=== PATIENT | male | born 1955 | race Caucasian/White ===

== ENCOUNTER 2018-09-22 11:31 | Emergency (ER) | payer BC ==
--- NOTE | 2018-09-22 13:28 | ER ---
Nurse's Notes [facility] Name: Gucci Orozco Age: 63 yrs Sex: Male : 1955 Arrival Date: 09/22/2018 Time: 11:36 Bed 13 Private MD: Onesimo Rubin H Diagnosis: Tremor, unspecified Presentation: 09/22 11:41 Presenting complaint: Patient states: "My fingers, hands will start jerking on their sv own." Reports that he has had his medications changed around over the years and the twitching has gotten worse. Transition of care: patient was not received from another setting of care. Onset of symptoms is unknown. Care prior to arrival: None. 11:41 Method Of Arrival: Ambulatory sv 11:41 Acuity: ANALISA 4 sv 13:00 Risk Assessment: Do you want to hurt yourself or someone else? Patient reports no ph desire to harm self or others. Initial Sepsis Screen: Does the patient meet any 2 criteria? No. Patient's initial sepsis screen is negative. Does the patient have a suspected source of infection? No. Patient's initial sepsis screen is negative. Historical: - Allergies: 11:43 No Known Allergies; sv - PSHx: 11:43 Appendectomy; CABG; sv - Immunization history:: Adult Immunizations unknown. - Social history:: Patient/guardian denies using alcohol, street drugs, The patient lives with family, Smoking status: Patient/guardian denies using tobacco. - Family history:: not pertinent. - Ebola Screening: : No symptoms or risks identified at this time. Screenin:00 Abuse screen: Denies threats or abuse. Denies injuries from another. Nutritional ph screening: No deficits noted. Tuberculosis screening: No symptoms or risk factors identified. Fall Risk None identified. Assessment: 12:30 General: Appears in no apparent distress. comfortable, obese, well groomed, Behavior is ph calm, cooperative, appropriate for age, Denies fever, feeling ill. Pain: Denies pain. Neuro: Level of Consciousness is awake, alert, obeys commands, Oriented to person, place, time, situation, Lining Finisher are equal bilaterally Moves all extremities. Full function. Cardiovascular: Capillary refill < 3 seconds in bilateral fingers Patient's skin is warm and dry. Respiratory: Airway is patent Respiratory effort is even, unlabored. Derm: Skin is intact, is healthy with good turgor, Skin is pink, warm \\T\\ dry. Musculoskeletal: Circulation, motion, and sensation intact. Range of motion: intact in all extremities. 14:00 Reassessment: Patient appears in no apparent distress at this time. Patient and/or ph family updated on plan of care and expected duration. Pain level reassessed. Patient is alert, oriented x 3, equal unlabored respirations, skin warm/dry/pink. Vital Signs: 11:43 BP 99 / 68; Pulse 77; Resp 18; Temp 97; Pulse Ox 96% ; Weight 136.08 kg; Height 6 ft. 0 sv in. (182.88 cm); 11:43 Body Mass Index 40.69 (136.08 kg, 182.88 cm) sv ED Course: 11:36 Patient arrived in ED. dl4 11:36 Onesimo Rubin DO is Private Physician. dl4 11:42 Triage completed. sv 11:44 Arm band placed on. sv 11:48 Elena Saxena RN is Primary Nurse. ph 11:50 Tanika Deluca MD is Attending Physician. ma2 13:00 Patient has correct armband on for positive identification. Bed in low position. Call ph light in reach. Side rails up X 1. 13:00 No provider procedures requiring assistance completed. Patient did not have IV access ph during this emergency room visit. Administered Medications: No medications were administered Point of Care Testing: Blood Glucose: 12:59 Blood Glucose: 211 mg/dL; ph Ranges: Outcome: 13:27 Discharge ordered by . ma2 14:00 Patient left the ED. ph 14:00 Discharged to home ambulatory. ph 14:00 Condition: good 14:00 Discharge instructions given to patient, Instructed on discharge instructions, follow up and referral plans. Demonstrated understanding of instructions, follow-up care. Signatures: Harriet Vang RN RN Elena Saxena RN RN Tanika Deluca MD MD ma Siddhartha Orozco dl4 Corrections: (The following items were deleted from the chart) 11:47 11:43 Pulse 77bpm; Resp 18bpm; Pulse Ox 96%; Temp 97F; 136.08 kg; Height 6 ft. 0 in.; sv BMI: 40.6; sv
--- NOTE | 2018-09-22 13:28 | EDPHYS ---
Physician Documentation [facility] Name: Gucci Orozco Age: 63 yrs Sex: Male : 1955 Arrival Date: 09/22/2018 Time: 11:36 Bed 13 Private MD: Onesimo Rubin H ED Physician Tanika Deluca HPI: 09/22 12:10 This 63 yrs old Male presents to ER via Ambulatory with complaints of ma2 Twitching. 12:10 Onset: The symptoms/episode began/occurred gradually, 3 year(s) ago. Associated signs ma2 and symptoms: Pertinent negatives: Altered mental status chest pain, dysphagia, fever, Light headed nausea, rash, swelling, Syncope. Possible causes: The patient has no known obvious cause for the symptoms. At home the patient or guardian has treated the symptoms with nothing. Severity of symptoms: At their worst the symptoms were mild in the emergency department the symptoms are unchanged. The patient has not experienced similar symptoms in the past. here with intentional tremor that is been there for 3 years getting gradually worse over last 2 months, has no other symptoms. Historical: - Allergies: 11:43 No Known Allergies; sv - PSHx: 11:43 Appendectomy; CABG; sv - Immunization history:: Adult Immunizations unknown. - Social history:: Patient/guardian denies using alcohol, street drugs, The patient lives with family, Smoking status: Patient/guardian denies using tobacco. - Family history:: not pertinent. - Ebola Screening: : No symptoms or risks identified at this time. ROS: 12:10 Constitutional: Negative for fever, chills, and weight loss. ma2 12:10 Neuro: Positive for tremor, Negative for altered mental status, dizziness, gait disturbance, headache, hearing loss, loss of consciousness, numbness, seizure activity, speech changes, syncope, near syncope, tingling, tinnitus, visual changes, weakness, acute changes. 12:10 All other systems are negative. Exam: 12:10 Constitutional: This is a well developed, well nourished patient who is awake, alert, ma2 and in no acute distress. Chest/axilla: Normal chest wall appearance and motion. Nontender with no deformity. No lesions are appreciated. Cardiovascular: Regular rate and rhythm with a normal S1 and S2. No gallops, murmurs, or rubs. Normal PMI, no JVD. No pulse deficits. Respiratory: Lungs have equal breath sounds bilaterally, clear to auscultation and percussion. No rales, rhonchi or wheezes noted. No increased work of breathing, no retractions or nasal flaring. Abdomen/GI: Soft, non-tender, with normal bowel sounds. No distension or tympany. No guarding or rebound. No evidence of tenderness throughout. Skin: Warm, dry with normal turgor. Normal color with no rashes, no lesions, and no evidence of cellulitis. MS/ Extremity: Pulses equal, no cyanosis. Neurovascular intact. Full, normal range of motion. Neuro: Awake and alert, GCS 15, oriented to person, place, time, and situation. Cranial nerves II-XII grossly intact. Motor strength 5/5 in all extremities. Sensory grossly intact. Cerebellar exam normal. Normal gait. Vital Signs: 11:43 BP 99 / 68; Pulse 77; Resp 18; Temp 97; Pulse Ox 96% ; Weight 136.08 kg; Height 6 ft. 0 sv in. (182.88 cm); 11:43 Body Mass Index 40.69 (136.08 kg, 182.88 cm) sv MDM: 11:51 Patient medically screened. ma2 12:10 Differential diagnosis: Parkinson, vs essential tremor vs drug s/e, n oemergency ma2 condition exist and he will see his pco next week to address that. Data reviewed: vital signs, nurses notes, diagnostic data from outside facility. Counseling: I had a detailed discussion with the patient and/or guardian regarding: the historical points, exam findings, and any diagnostic results supporting the discharge/admit diagnosis, the presence of at least one elevated blood pressure reading (>120/80) during this emergency department visit, the need for outpatient follow up. Response to treatment:. 09/22 12:08 Order name: Accucheck Blood Glucose; Complete Time: 13:00 ma2 Administered Medications: No medications were administered Point of Care Testing: Blood Glucose: 12:59 Blood Glucose: 211 mg/dL; ph Ranges: Critical Glucose Levels:Adult <50 mg/dl or >400 mg/dl <40 mg/dl or >180 mg/dl Disposition: 09/22/18 13:27 Discharged to Home. Impression: Tremor, unspecified. - Condition is Stable. - Discharge Instructions: Tremor, Diabetic Neuropathy. - Medication Reconciliation Form, Thank You Letter, Antibiotic Education, Prescription Opioid Use form. - Follow up: Private Physician; When: Tomorrow; Reason: Continuance of care. Signatures: Harriet Vang RN RN Elena Saxena RN RN ph Tanika Deluca MD MD ma2 Corrections: (The following items were deleted from the chart) 14:00 13:27 09/22/2018 13:27 Discharged to Home. Impression: Tremor, unspecified. Condition ph is Stable. Forms are Medication Reconciliation Form, Thank You Letter, Antibiotic Education, Prescription Opioid Use. Follow up: Private Physician; When: Tomorrow; Reason: Continuance of care. ma2
[2018-09-22 14:04] VITALS: BP 99/68; TEMP 97; O2SAT 96
== END 2018-09-22 14:00 | disposition home or self-care (01) ==
LOC: ER 11:31
DX: R25.1 Tremor, unspecified (principal)
CPT/HCPCS: 82962

== ENCOUNTER 2019-02-18 08:27 | Observation (INO) | payer BC ==
--- NOTE | 2019-02-18 09:22 | RAD REPORT ---
EXAM DESCRIPTION: RAD - Chest Single View - 02/18/2019 9:10 am CLINICAL HISTORY: CHEST PAIN Chest pain. COMPARISON: CHEST SINGLE VIEW dated 06/11/2014; CHEST SINGLE VIEW dated 06/10/2014; CHEST SINGLE VIEW dated 04/19/2013; CHEST SINGLE VIEW dated 03/02/2013 FINDINGS: Portable technique limits examination quality. Mild interstitial pulmonary edema is seen. The heart is prominent in size with sternotomy wires prese nt. No displaced fractures. IMPRESSION: Mild CHF suspected.
[2019-02-18 10:10] LABS: Absolute Lymphocytes (CBC) 1.8 K/uL (0.7-4.9); Basophils % 0.6 % (0-1.3); Eosinophils % 2.7 % (0-4.4); Hematocrit 37.2 % (39.6-49.0); Lymphocytes % 35.6 % (15.3-44.8); RBC Red Blood Cell Count 3.95 M/uL (4.33-5.43)
[2019-02-18 10:17] LABS: Protime INR 1.74
[2019-02-18 10:21] LABS: ALT/SGPT 23 U/L (12-78); AST/SGOT 18 U/L (15-37); Albumin 3.6 g/dL (3.4-5.0); Alkaline Phosphatase 48 U/L (45-117); BUN Blood Urea Nitrogen 21 mg/dL (7-18); Bicarbonate 26 mmol/L (21-32); Bilirubin Direct 0.2 mg/dL (0-0.2); Bilirubin Total 0.6 mg/dL (0.2-1.0); Glucose Level 197 mg/dL (74-106); Magnesium 1.8 mg/dL (1.8-2.4); NT PRO-BNP 643 pg/mL (<125); Potassium 4.6 mmol/L (3.5-5.1); Protein, Total 6.9 g/dL (6.4-8.2); Sodium Level 140 mmol/L (136-145); Troponin (Emerg Dept Use Only) < 0.02 ng/mL (0.0-0.045)
--- NOTE | 2019-02-18 11:23 | ER ---
Nurse's Notes [facility] Name: Gucci Orozco Age: 63 yrs Sex: Male : 1955 Arrival Date: 02/18/2019 Time: 08:28 Bed 2 Private MD: Onesimo Rubin H Diagnosis: Atrial fibrillation and flutter;Weakness;Shortness of breath;Chest pain, unspecified;Acute combined systolic (congestive) and diastolic (congestive) heart failure Presentation: 02/18 08:30 Presenting complaint: Patient states: shortness of breath, intermittent heart racing ss sensation and chest discomfort that has been intermittent for the past few days, but became worse this morning. Pt reports he last took a Nitro SL at 0100 this AM. Transition of care: patient was not received from another setting of care. Onset of symptoms is unknown. Risk Assessment: Do you want to hurt yourself or someone else? Patient reports no desire to harm self or others. Initial Sepsis Screen: Does the patient meet any 2 criteria? No. Patient's initial sepsis screen is negative. Does the patient have a suspected source of infection? No. Patient's initial sepsis screen is negative. Care prior to arrival: None. 08:30 Method Of Arrival: Ambulatory ss 08:30 Acuity: ANALISA 2 ss Historical: - Allergies: 08:41 No Known Allergies; ss - PMHx: 08:41 Myocardial infarction; ss - PSHx: 08:41 Appendectomy; CABG; cardiac stents; ss - Immunization history:: Adult Immunizations up to date. - Social history:: Smoking status: Patient/guardian denies using tobacco. - Ebola Screening: : Patient denies exposure to infectious person Patient denies travel to an Ebola-affected area in the 21 days before illness onset. Screenin:40 Abuse screen: Denies threats or abuse. Denies injuries from another. Nutritional sg screening: No deficits noted. Tuberculosis screening: No symptoms or risk factors identified. Never had TB. Fall Risk None identified. Assessment: 09:49 Reassessment: Patient appears in no apparent distress at this time. Patient and/or sg family updated on plan of care and expected duration. Pain level reassessed. Patient is alert, oriented x 3, equal unlabored respirations, skin warm/dry/pink. 09:58 Reassessment: pt bedside monitor recorded HR in 40's, notified. sg Vital Signs: 08:41 BP 145 / 76; Pulse 59; Resp 16; Temp 97.2(TE); Pulse Ox 96% on R/A; Weight 147.42 kg; ss Height 6 ft. 0 in. (182.88 cm); Pain 0/10; 09:55 BP 129 / 72; Pulse 42; Resp 18; Pulse Ox 96% on R/A; sg 10:30 BP 132 / 95; Pulse 52; Resp 18; Pulse Ox 100% on R/A; sg 11:30 BP 141 / 86; Pulse 50; Resp 17; Pulse Ox 96% on R/A; sg 12:30 BP 150 / 86; Pulse 58 MON; Resp 17; Pulse Ox 95% on R/A; sg 13:40 BP 130 / 67; Pulse 60; Resp 17; Temp 97.2; Pulse Ox 96% on R/A; sg 08:41 Body Mass Index 44.08 (147.42 kg, 182.88 cm) ED Course: 08:28 Patient arrived in ED. as 08:29 Onesimo Rubin DO is Private Physician. as 08:33 Willem Mejia MD is Attending Physician. kdr 08:40 Triage completed. ss 08:41 Arm band placed on right wrist. ss 08:47 EKG done, by certified surgical tech/first assistant. reviewed by Willem Mejia MD. at1 09:03 X-ray completed. Portable x-ray completed in exam room. Patient tolerated procedure jb2 well. 09:08 XRAY Chest (1 view) In Process Unspecified. EDMS 09:10 Initial lab(s) drawn, by me, sent to lab. sg 09:40 Lab(s) recollected, by me, sent to lab. sg 09:49 Zen Dunlap, RN is Primary Nurse. sg 09:55 Patient has correct armband on for positive identification. Bed in low position. Call sg light in reach. Side rails up X2. classroom monitor on. Pulse ox on. NIBP on. Warm blanket given. Head of bed elevated. 11:22 Anna Harris MD is Hospitalizing Provider. kdr 15:00 No provider procedures requiring assistance completed. Patient admitted, IV remains in sg place. intact, No redness/swelling at site. Administered Medications: 12:05 Drug: Lasix 40 mg Route: IVP; Site: left hand; 13:00 Follow up: Response: No adverse reaction; void x1, see vitals output sheet Intake: Output: 15:06 Urine: 2000ml (Voided); Total: 2000ml. sg Outcome: 11:23 Decision to Hospitalize by Provider. kdr 15:07 Admitted to Tele accompanied by tech, via wheelchair, room 416, with chart, Report sg called to BIA Driscoll 15:07 Condition: stable 15:07 Instructed on the need for admit, safety practices. 15:32 Patient left the ED. sg Signatures: Dispatcher [employer] EDZen Mckeon RN RN Willem Gotti MD MD kdr Buechter, Jesse jb2 Martinez, Amelia as Smirch, Shelby, RN RN Belle Sultana, quality controller EKG Tat1
--- NOTE | 2019-02-18 11:24 | EDPHYS ---
Physician Documentation [facility] Name: Gucci Orozco Age: 63 yrs Sex: Male : 1955 Arrival Date: 02/18/2019 Time: 08:28 Bed 2 Private MD: Onesimo Rubin H ED Physician Willem Mejia HPI: 02/18 10:00 This 63 yrs old Male presents to ER via Ambulatory with complaints of Chest kdr Tightness. 10:00 The patient c/o general chest discomfort - not pain - similar to when he has had his kdr prior VT. He also feels like his heart is racing and he is SOB. Again, similar to prior MIs Started at about 10:00 PM last night and he states that eh was unable to sleep last night. He went to work this morning and his symptoms continued so he had one of his co-workers bring hi to the ED. On the way to the ED, his symptoms greatly improved and have now [id number] resolved. Historical: - Allergies: 08:41 No Known Allergies; ss - PMHx: 08:41 Myocardial infarction; ss - PSHx: 08:41 Appendectomy; CABG; cardiac stents; ss - Immunization history:: Adult Immunizations up to date. - Social history:: Smoking status: Patient/guardian denies using tobacco. - Ebola Screening: : Patient denies exposure to infectious person Patient denies travel to an Ebola-affected area in the 21 days before illness onset. ROS: 10:00 Constitutional: Negative for fever, chills, and weight loss, Eyes: Negative for injury, kdr pain, redness, and discharge, ENT: Negative for injury, pain, and discharge, Neck: Negative for injury, pain, and swelling, Abdomen/GI: Negative for abdominal pain, nausea, vomiting, diarrhea, and constipation, Back: Negative for injury and pain, : Negative for injury, bleeding, discharge, and swelling, MS/Extremity: Negative for injury and deformity, Skin: Negative for injury, rash, and discoloration, Neuro: Negative for headache, weakness, numbness, tingling, and seizure activity. Psych: Negative for depression, anxiety, suicide ideation, homicidal ideation, and hallucinations, Allergy/Immunology: Negative for hives, rash, and allergies, Endocrine: Negative for neck swelling, polydipsia, polyuria, polyphagia, and marked weight changes, Hematologic/Lymphatic: Negative for swollen nodes, abnormal bleeding, and unusual bruising. 10:00 Cardiovascular: Positive for chest pain, palpitations, paroxysmal nocturnal dyspnea, Negative for orthopnea. 10:00 Respiratory: Positive for dyspnea on exertion, shortness of breath, Negative for hemoptysis, orthopnea, pleurisy. Exam: 10:00 Constitutional: This is a well developed, well nourished patient who is awake, alert, kdr and in no acute distress. Head/Face: Normocephalic, atraumatic. Eyes: Pupils equal round and reactive to light, extra-ocular motions intact. Lids and lashes normal. Conjunctiva and sclera are non-icteric and not injected. Cornea within normal limits. Periorbital areas with no swelling, redness, or edema. Neck: Trachea midline, no thyromegaly or masses palpated, and no cervical lymphadenopathy. Supple, full range of motion without nuchal rigidity, or vertebral point tenderness. No Meningismus. Chest/axilla: Normal chest wall appearance and motion. Nontender with no deformity. No lesions are appreciated. Cardiovascular: Regular rate and rhythm with a normal S1 and S2. No gallops, murmurs, or rubs. Normal PMI, no JVD. No pulse deficits. Respiratory: Lungs have equal breath sounds bilaterally, clear to auscultation and percussion. No rales, rhonchi or wheezes noted. No increased work of breathing, no retractions or nasal flaring. Abdomen/GI: Soft, non-tender, with normal bowel sounds. No distension or tympany. No guarding or rebound. No evidence of tenderness throughout. Back: No spinal tenderness. No costovertebral tenderness. Full range of motion. Skin: Warm, dry with normal turgor. Normal color with no rashes, no lesions, and no evidence of cellulitis. MS/ Extremity: Pulses equal, no cyanosis. Neurovascular intact. Full, normal range of motion. Neuro: Awake and alert, GCS 15, oriented to person, place, time, and situation. Cranial nerves II-XII grossly intact. Motor strength 5/5 in all extremities. Sensory grossly intact. Cerebellar exam normal. Normal gait. Psych: Awake, alert, with orientation to person, place and time. Behavior, mood, and affect are within normal limits. Vital Signs: 08:41 BP 145 / 76; Pulse 59; Resp 16; Temp 97.2(TE); Pulse Ox 96% on R/A; Weight 147.42 kg; ss Height 6 ft. 0 in. (182.88 cm); Pain 0/10; 09:55 BP 129 / 72; Pulse 42; Resp 18; Pulse Ox 96% on R/A; sg 10:30 BP 132 / 95; Pulse 52; Resp 18; Pulse Ox 100% on R/A; sg 11:30 BP 141 / 86; Pulse 50; Resp 17; Pulse Ox 96% on R/A; sg 12:30 BP 150 / 86; Pulse 58 MON; Resp 17; Pulse Ox 95% on R/A; sg 13:40 BP 130 / 67; Pulse 60; Resp 17; Temp 97.2; Pulse Ox 96% on R/A; sg 08:41 Body Mass Index 44.08 (147.42 kg, 182.88 cm) ss MDM: 09:52 HEART Score: History: Moderately Suspicious (1), ECG: Non specific repolarization kdr disturbance / LBTB / PM (1), Age: > 45 and < 65 years (1), Risk Factors: 1 or 2 risk factors (1), [Obesity]. 11:23 Patient medically screened. kdr 11:23 Data reviewed: vital signs, nurses notes, lab test result(s), radiologic studies. kdr 02/18 08:33 Order name: Basic Metabolic Panel; Complete Time: 11:44 kdr 02/18 08:33 Order name: CBC with Diff kdr 02/18 08:33 Order name: LFT's; Complete Time: 11:44 kdr 02/18 08:33 Order name: Magnesium; Complete Time: 11:44 kdr 02/18 08:33 Order name: NT PRO-BNP; Complete Time: 11:44 kdr 02/18 08:33 Order name: PT-INR; Complete Time: 11:44 kdr 02/18 08:33 Order name: Troponin (emerg Dept Use Only); Complete Time: 11:44 kdr 02/18 08:33 Order name: XRAY Chest (1 view); Complete Time: 09:43 kdr 02/18 08:33 Order name: EKG; Complete Time: 08:38 kdr 02/18 11:52 Order name: Troponin I [facility] 02/18 11:52 Order name: Troponin I [facility] 02/18 11:52 Order name: Troponin I [facility] 02/18 11:52 Order name: Troponin I [facility] 02/18 08:33 Order name: Cardiac monitoring; Complete Time: 08:44 [facility] 02/18 08:33 Order name: EKG - Nurse/Tech; Complete Time: 08:44 [facility] 02/18 08:33 Order name: IV Saline Lock; Complete Time: 08:44 [facility] 02/18 08:33 Order name: Labs collected and sent; Complete Time: 08:44 [facility] 02/18 08:33 Order name: O2 Per Protocol; Complete Time: 08:44 [facility] 02/18 08:33 Order name: O2 Sat Monitoring; Complete Time: 08:44 [facility] 02/18 09:32 Order name: Labs - recollect needed; Complete Time: 09:58 tn 02/18 11:52 Order name: CONS Physician Consult [facility] 02/18 11:52 Order name: NPO EDNE Administered Medications: 12:05 Drug: Lasix 40 mg Route: IVP; Site: left hand; 13:00 Follow up: Response: No adverse reaction; void x1, see vitals output sheet sg Disposition: 02/18/19 11:23 Hospitalization ordered by Anna Harris for Observation. Preliminary diagnosis are Atrial fibrillation and flutter, Weakness, Shortness of breath, Chest pain, unspecified, Acute combined systolic (congestive) and diastolic (congestive) heart failure. - Bed requested for Telemetry/MedSurg (observation). - Status is Observation. sg - Condition is Fair. - Problem is new. - Symptoms have improved. UTI on Admission? No Signatures: Dispatcher [employer] [facility] Christen Forrester RN BIA Zen Dunlap RN RN sg Willem Mejia MD MD [facility] Kacy Patel ms Kim Jones RN RN ss Corrections: (The following items were deleted from the chart) 11:44 11:23 Hospitalization Ordered by Anna Harris MD for Observation. Preliminary kdr diagnosis is Atrial fibrillation and flutter; Weakness; Shortness of breath; Chest pain, unspecified. Bed requested for Telemetry/MedSurg (observation). Status is Observation. Condition is Fair. Problem is new. Symptoms have improved. UTI on Admission? No. kdr 14:51 11:44 02/18/2019 11:23 Hospitalization Ordered by Anna Harris MD for Observation. dw Preliminary diagnosis is Atrial fibrillation and flutter; Weakness; Shortness of breath; Chest pain, unspecified; Acute combined systolic (congestive) and diastolic (congestive) heart failure. Bed requested for Telemetry/MedSurg (observation). Status is Observation. Condition is Fair. Problem is new. Symptoms have improved. UTI on Admission? No. kdr 15:32 14:51 02/18/2019 11:23 Hospitalization Ordered by Anna Harris MD for Observation. sg Preliminary diagnosis is Atrial fibrillation and flutter; Weakness; Shortness of breath; Chest pain, unspecified; Acute combined systolic (congestive) and diastolic (congestive) heart failure. Bed requested for Telemetry/MedSurg (observation). Status is Observation. Condition is Fair. Problem is new. Symptoms have improved. UTI on Admission? No. dw
[2019-02-18] MEDS ORDERED: FUROSEMIDE 40 MG/4 ML VIAL ONE (12:07)
--- NOTE | 2019-02-18 12:38 | EKG ---
Test Date: 2019-02-18 Test Time: 08:43:04 Laboratory Machinist: COLEEN MEASUREMENT RESULTS: Intervals: Rate: 57 ND: QRSD: 104 QT: 418 QTc: 406 Tolley: P: -6 ND: QRS: 132 T: 90 INTERPRETIVE STATEMENTS: Atrial flutter with variable AV block Left posterior fascicular block Abnormal ECG Compared to ECG 06/12/2014 09:03:04 Left posterior fascicular block now present Sinus rhythm no longer present Left-axis deviation no longer present Myocardial infarct finding no longer present Electronically Signed On 02-18-19 12:37:46 CDT by Conor Lopez
--- NOTE | 2019-02-18 14:28 | P.HP ---
Certification for Inpatient Patient admitted to: Observation With expected LOS: <2 Midnights Patient will require the following post-hospital care: None Practitioner: I am a practitioner with admitting privileges, knowledge of patient current condition, hospital course, and medical plan of care. Services: Services provided to patient in accordance with Admission requirements found in Title 42 Section 412.3 of the Code of Federal Regulations Patient History Date of Service: 02/18/19 Primary Care Provider: Dr Lopez Reason for admission: SOB History of Present Illness: This is a 63-year-old male with significant past medical history of GA and obesity who came to the hospital complaining of having shortness of breath along with palpitations for past couple of weeks. Patient stated that he also has been having trouble urinating even despite being on Lasix. Patient states that he has had differences Lasix dosage recently where his Lasix was reduced down to 20 daily instead of b.i.d.. Patient stated that he has been also sleeping on the side and not able to breathe properly. Patient noted that he has heart was racing today and he was getting dizzy and short of breath and thus he decided to come to the ER. Having any chest pain nausea vomiting fever chills or any other associated symptoms at this time. In the ER patient was seen and evaluated. Lab work and imaging was done. Patient was found to have atrial flutter along with elevated BNP and thus was admitted to the hospital for further workup. Allergies No Known Drug Allergies Allergy (Unverified 12/08/14 13:50) Unknown Home Medications: Furosemide [Lasix*] 40 mg PO DAILY 03/02/13 Potassium Chloride [Klor-Con] 20 meq PO DAILY 03/02/13 Pravastatin Sodium [Pravachol] 20 mg PO DAILY 03/02/13 glipiZIDE [Glucotrol*] 10 mg PO BID 03/02/13 Clopidogrel Bisulfate [Plavix*] 75 mg PO DAILY #30 tablet 03/05/13 Metoprolol Tartrate [Lopressor*] 50 mg PO BID #60 tab 03/05/13 Aspirin [Lo-Dose Aspirin EC] 81 mg PO DAILY 04/19/13 Metformin HCl [Glucophage*] 1,000 mg PO BIDWM 04/19/13 Codeine/APAP [Tylenol #3*] 1 tab PO Q8HP PRN #30 tab 06/11/14 Lisinopril [Prinivil*] 10 mg PO DAILY #30 tab 06/12/14 - Past Medical/Surgical History Diabetic: Yes -: GA -: AFIB -: DM -: HTN -: appe -: cabg no cardiac stents - Social History Alcohol use: Yes CD- Drugs: No Caffeine use: No Review of Systems 10-point ROS is otherwise unremarkable Physical Examination - Physical Exam General: Alert, In no apparent distress, Obese HEENT: Atraumatic, PERRLA, Mucous membr. moist/pink, EOMI, Sclerae nonicteric Neck: Supple, 2+ carotid pulse no bruit, No LAD, JVD distended Respiratory: Clear to auscultation bilaterally, Normal air movement Cardiovascular: Normal S1 S2, Irregular heart rate/rhythm Gastrointestinal: Normal bowel sounds, No tenderness Musculoskeletal: No tenderness, Swelling (2+ pedal edema) Integumentary: No rashes Neurological: Normal gait, Normal speech, Normal strength at 5/5 x4 extr, Normal tone, Normal affect Lymphatics: No axilla or inguinal lymphadenopathy - Studies Laboratory Data (last 24 hrs) 02/18/19 09:40: PT 20.1 H, INR 1.74 02/18/19 09:40: WBC 5.1, Hgb 12.2 L, Hct 37.2 L, Plt Count 195 02/18/19 09:40: Sodium 140, Potassium 4.6, BUN 21 H, Creatinine 1.06, Glucose 197 H, Magnesium 1.8, Total Bilirubin 0.6, AST 18, ALT 23, Alkaline Phosphatase 48 Assessment and Plan - Problems (Diagnosis) (1) Dyspnea Onset Date: 06/10/14 Current Visit: No Status: Acute Plan: Patient with complaints of dyspnea on exertion along with orthopnea -physical exam consistent with JVD distension with bilateral pedal edema -initial rhythm also consistent with atrial flutter -dyspnea could be secondary to irregular heart rate versus CHF exacerbation -cardiology is consulted. Appreciated recommendations at this time -patient will be getting Pharm stress test done tomorrow morning and will get echocardiogram as well. -this currently on oxygenation will wean as tolerated Qualifiers: Dyspnea type: orthopnea Qualified Code(s): R06.01 - Orthopnea (2) Atrial flutter Current Visit: Yes Status: Acute Plan: Typical atrial flutter noted as initial rhythm -cardiology consulted. Appreciated recommendations at this time -patient is scheduled for pharm stress test tomorrow -will get echocardiogram done at this time -will followup post stress test -patient will be started on a beta-jake here in the hospital Qualifiers: Atrial flutter type: typical Qualified Code(s): I48.3 - Typical atrial flutter (3) Benign essential hypertension Onset Date: 06/10/14 Current Visit: No Status: Chronic Plan: Blood pressure stable at this time -we will restart patient on blood pressure medication from home at this time (4) Diabetes mellitus type 2 Onset Date: 06/10/14 Current Visit: No Status: Chronic Plan: Insulin sliding scale and Accu-Cheks at this time (5) Hyperlipidemia Current Visit: No Status: Chronic Plan: Will get lipid panel and restart patient on statin here in the hospital (6) coronary artery disease Current Visit: No Status: Active Plan: Patient with past medical history of GA and CABG -cardiology is consulted. Appreciate recommendation -will restart CAD medications here in the hospital - Plan Admit patient under med surgical floor for dyspnea along with atrial flutter and pending workup at this time. Discharge Plan: Home Plan to discharge in: 48 Hours - Advance Directives Does patient have a Living Will: No Does patient have a Durable POA for Healthcare: No - Code Status/Comfort Care Code Status Assessed: Yes Critical Care: No
[2019-02-18] MEDS ORDERED: ONDANSETRON 4 MG/2 ML VIAL IV PRN (15:14)
[2019-02-18] MEDS ORDERED: MAGNESIUM SULFATE 1 gm IVPB 1 GM/100 ML BAG IV ONE (16:00)
[2019-02-18] MEDS ORDERED: glipiZIDE 5 MG TAB PO SCH (16:32)
--- NOTE | 2019-02-18 16:54 | CON ---
History Of Present Illness: Mr. Orozco is 63. He came to the hospital with shortness of breath, an d he was found to have pulmonary edema, pedal edema, and we believe he is in congestive heart failure . Mr. Orozco has a history of coronary heart disease with bypass. He has had stents. He is in chr onic atrial fib now. He has had some trouble to staying on the correct Lasix does, some mistake was made in the number of pills he had, and he may have been taking less Lasix than usual. He is not harshad y careful with sodium intake, but he notes weight gain, more edema, and he notes shortness of breath. When he came to the hospital, he was found to be in mild pulmonary edema on chest x-ray. He is rec eiving diuresis and seems to be improving. The troponin level is normal. 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 The N-terminal proBNP is elevated at 643. His outpatient medications have been Lasix 80 mg per day, but he is taking some different amount than that. I think he is satya g back between 40 and 80 a day. He is on a direct anticoagulant. We will have to call my office and see what our medicine list is there, we just do not have it here. Physical Examination: General: He is obese, alert, oriented, pleasant. He is not in distress. Lungs: Clear, except in the bases, there are some mild crackles. Heart: Irregularly irregular. Extremities: 2 to 3+ edema. Recommendation: I believe Mr. Orozco needs diuresis. He probably needs to lose about 10-15 pounds of extracellular fluid. His body mass index is 44.8, blood pressure 132/95, O2 saturation 100% on ro om air. He is 6 feet tall and his weight is 147 kg. He probably needs to get down to somewhere arou nd 142 kg to feel better. At the same time we will do this, we will do a nuclear stress test to see if the ischemia is part of the issue. I think it is almost all the congestive heart failure. We zoila l get an echo and see if there is significant systolic dysfunction. He had mild systolic dysfunction in the past. We will see if that is any different by repeating an echo. DENA/KIAN Voice ID: [id number] Report ID: [id number]
[2019-02-18] MEDS: FUROSEMIDE 40 MG/4 ML VIAL IV SCH (17:00)
[2019-02-18] MEDS ORDERED: RIVAROXABAN 20 MG TABLET PO SCH (17:00)
--- NOTE | 2019-02-18 17:47 | ECHO ---
HEIGHT: 6 ft 0 in WEIGHT: 330 lb 0 oz DATE OF STUDY: 02/18/[address]: Anna Harris MD 2-DIMENSIONAL: YES M.MODE: YES DOPPLER: YES COLOR FLOW: YES TDS: YES PORTABLE: YES DEFINITY: BUBBLE STUDY: DIAGNOSIS: ATRIAL FLUTTER CARDIAC HISTORY: CATHERIZATION: YES SURGERY: YES PROSTHETIC VALVE: NO PACEMAKER: NO MEASUREMENTS (cm) DIASTOLIC (NORMALS) SYSTOLIC (NORMALS) IVSd 1.2 (0.6-1.2) LA Diam 3.8 (1.9-4.0) LVEF 44% LVIDd 5.9 (3.5-5.7) LVIDs 4.6 (2.0-3.5) %FS 22% LVPWd 1.3 (0.6-1.2) Ao Diam 3.0 (2.0-3.7) 2 DIMENSIONAL ASSESSMENT: RIGHT ATRIUM: NORMAL LEFT ATRIUM: DILATED RIGHT VENTRICLE: NORMAL LEFT VENTRICLE: MILD LEFT VENTRICULAR HYPERTROPHY TRICUSPID VALVE: NORMAL MITRAL VALVE: NORMAL PULMONIC VALVE: NORMAL AORTIC VALVE: SCLEROSIS PERICARDIAL EFFUSION: NONE AORTIC ROOT: NORMAL LEFT VENTRICULAR WALL MOTION: INFERIOR, POSTERIOR AKINESIS. DOPPLER/COLOR FLOW: MILD MITRAL REGURGITATION. COMMENTS: DEPRESSED LEFT VENTRICULAR EJECTION FRACTION AND WALL MOTION ABNORMALITY. DILATED LEFT ATRIUM. AORTIC SCLEROSIS WITH NO AORTIC STENOSIS OR AORTIC REGURGITATION. LEFT VENTRICULAR HYPERTROPHY. MILD MITRAL REGURGITATION. ATRIAL FIBRILLATION. TECHNOLOGIST: TIAGO GARCIA
[2019-02-18] MEDS: glipiZIDE 5 MG TAB PO SCH (18:02)
[2019-02-18 19:02] LABS: Urine Appearance CLEAR; Urine Bilirubin NEGATIVE (NEG); Urine Blood NEGATIVE (NEG); Urine Color YELLOW; Urine Glucose 1+ (NEG); Urine Protein NEGATIVE (NEG); Urine Urobilinogen 0.2 mg/dL (0.2-1.0)
[2019-02-18 19:03] LABS: Urine Microscopic Reflex NO UMIC
[2019-02-18] MEDS ORDERED: ATORVASTATIN 40 MG TAB PO SCH (21:00)
[2019-02-18] MEDS: METOPROLOL TAR 50 MG TAB PO SCH (21:21)
[2019-02-18] MEDS ORDERED: ALPRAZOLAM 0.5 MG TABLET PO PRN (21:42)
[2019-02-19 01:32] VITALS: O2SAT 100
[2019-02-19 05:37] LABS: Absolute Lymphocytes (CBC) 1.7 K/uL (0.7-4.9); Basophils % 0.3 % (0-1.3); Eosinophils % 3.6 % (0-4.4); Hematocrit 37.8 % (39.6-49.0); Lymphocytes % 27.9 % (15.3-44.8); MPV 9.1 fL (7.6-11.3); Monocytes % 6.8 % (3.3-12.3); RBC Red Blood Cell Count 4.08 M/uL (4.33-5.43)
[2019-02-19 06:00] LABS: Albumin 3.5 g/dL (3.4-5.0); Bilirubin Total 0.9 mg/dL (0.2-1.0); Magnesium 1.9 mg/dL (1.8-2.4); Phosphorus 3.4 mg/dL (2.5-4.9); Potassium 4.3 mmol/L (3.5-5.1); Protein, Total 6.7 g/dL (6.4-8.2)
[2019-02-19] MEDS ORDERED: REGADENOSON 0.4 MG/5 ML SYR IV ONE (08:12)
[2019-02-19] MEDS ORDERED: CLOPIDOGREL 75 MG TABLET PO SCH (09:00)
[2019-02-19] MEDS ORDERED: PREGABALIN 150 MG CAP PO SCH (09:00)
[2019-02-19] MEDS ORDERED: ASPIRIN EC 81 MG TAB PO SCH (09:00)
[2019-02-19] MEDS ORDERED: LISINOPRIL 10 MG TAB PO SCH (09:00)
[2019-02-19 09:02] VITALS: BP 113/51; TEMP 97.2
--- NOTE | 2019-02-19 09:29 | RAD REPORT ---
EXAM DESCRIPTION: NM - Rest Stress Cardiac Imaging - 02/19/2019 9:20 am CLINICAL HISTORY: Chest pain COMPARISON: None. TECHNIQUE: The patient was administered 10.2 mCi of Tc 99m Sestamibi prior to resting SPECT imaging of the heart. The patient was then administered 31.3 mCi of Tc 99m Sestamibi following exercise or ph armacologic stress. Multiplanar SPECT images were reviewed. FINDINGS: The end diastolic volume is 205 ml, the end systolic volume is 152 ml, and the ejection fr action is 26 %. No stress-induced ischemic changes confirmed on this study. Patient has moderate-size area substantia lly diminished activity in the inferior wall near the base. Large area of moderately diminished activ ity is seen lateral wall near the apex. Pattern is not substantially different between rest and stres s sequencing. IMPRESSION: No stress ischemia confirmed on this study. Large area of diminished activity is seen lateral wall near the apex with a more moderate area dimini shed activity in the inferior wall near the base. These are unchanged between rest and stress imaging and most likely scarring. Enlarged end-diastolic volume of 205 mL with a poor ejection fraction of 26%.
[2019-02-19] MEDS: FUROSEMIDE 40 MG/4 ML VIAL IV SCH (10:45)
[2019-02-19] MEDS: METOPROLOL TAR 50 MG TAB PO SCH (10:47)
[2019-02-19] MEDS: glipiZIDE 5 MG TAB PO SCH (10:48)
--- NOTE | 2019-02-19 11:38 | TREADPHA ---
DX: CHEST PAIN Date of Study: 02/19/2019 Ht: 6 0 Wt: 330 lb 0 oz Consulting Physician: CHRISTY MEDICATIONS: XANAX, LIPITOR, LASIX, PRINIVIL, LOPRESSOR, ZOFRAN, LYRICA, GLUCOTROL HISTORY: 63 YEAR OLD MALE WITH COMPLAINTS OF CHEST PAIN. HISTORY OF HYPERTENSION, HYPERLIPIDEMIA, MYOCARIDAL INFARCTION, CARDIAC STENTS, NON SMOKER, NON DRINKER, ATRIAL FIBRILLATION. PHYSICIAL EXAMINATION: RESTING B.P.: 154/87 RESTING H.R.: 63 RESTING EKG: SINUS RHYTHM, POSSIBLE ANTERIOR MYOCARIDAL INFARCTION, PREMATURE VENTRICULAR COMPLEXES. PROTOCOL: LEXISCAN EXERCISE TIME: 3:30 B.P. AT PEAK STRESS: 153/96 IMPRESSION: LEXISCAN INJECTED, FOLLOWED BY CARDIOLITE PER PROTOCOL. SEE NUCLEAR MEDICINE REPORT. NO SUPRAVENTRICULAR TACHYCARDIA, VENTRICULAR TACHYCARDIA OR PREMATURE ATRIAL COMPLEXES. FREQUENT PREMATURE VENTRICULAR COMPLEXES. PATIENT REPORTED NO CHEST PAIN.
--- NOTE | 2019-02-19 12:12 | P.SSS ---
Patient History Date of Service: 02/19/19 Primary Care Provider: Dr Lopez Reason for admission: SOB History of Present Illness: This is a 63-year-old male with significant past medical history of IA and obesity who came to the hospital complaining of having shortness of breath along with palpitations for past couple of weeks. Patient stated that he also has been having trouble urinating even despite being on Lasix. Patient states that he has had differences Lasix dosage recently where his Lasix was reduced down to 20 daily instead of b.i.d.. Patient stated that he has been also sleeping on the side and not able to breathe properly. Patient noted that he has heart was racing today and he was getting dizzy and short of breath and thus he decided to come to the ER. Having any chest pain nausea vomiting fever chills or any other associated symptoms at this time. In the ER patient was seen and evaluated. Lab work and imaging was done. Patient was found to have atrial flutter along with elevated BNP and thus was admitted to the hospital for further workup. Allergies No Known Drug Allergies Allergy (Verified 02/18/19 16:17) Unknown Home Medications: Potassium Chloride [Klor-Con] 10 meq PO BID 03/02/13 glipiZIDE [Glucotrol*] 10 mg PO BIDWM 03/02/13 Metformin HCl [Glucophage*] 1,000 mg PO BIDWM 04/19/13 Lisinopril [Prinivil*] 10 mg PO DAILY #30 tab 06/12/14 ALPRAZolam [Xanax*] 1 tab PO TID PRN 02/18/19 Atorvastatin Calcium [Lipitor] 1 tab PO DAILY 02/18/19 Icosapent Ethyl [Vascepa 1 gm Cap] 1 tab PO BID 02/18/19 Pregabalin [Lyrica] 1 tab PO BID 02/18/19 Ranolazine [Ranolazine ER] 1 tab PO BID 02/18/19 Rivaroxaban [Xarelto] 1 tab PO DAILY 02/18/19 Tamsulosin [Flomax*] 1 tab PO DAILY 02/18/19 Furosemide [Lasix*] 40 mg PO BID #60 tab 02/19/19 Metoprolol Tartrate [Lopressor*] 50 mg PO BID #60 tab 02/19/19 - Past Medical/Surgical History Has patient received pneumonia vaccine in the past: No Diabetic: Yes -: IA -: AFIB -: DM -: HTN -: appe -: cabg cardiac stents - Family History Father History Unknown: Yes -: Cancer - Social History Smoking Status: Never smoker Alcohol use: Yes CD- Drugs: No Caffeine use: No Place of Residence: Home Review of Systems 10-point ROS is otherwise unremarkable Physical Examination - Vital Signs Temperature: 97.2 F Blood Pressure: 113/51 Pulse: 63 Respirations: 16 Pulse Ox (%): 94 - Physical Exam General: Alert, In no apparent distress HEENT: Atraumatic, PERRLA, Mucous membr. moist/pink, EOMI, Sclerae nonicteric Neck: Supple, 2+ carotid pulse no bruit, No LAD, Without JVD or thyroid abnormality Respiratory: Clear to auscultation bilaterally, Normal air movement Cardiovascular: Regular rate/rhythm, Normal S1 S2 Gastrointestinal: Normal bowel sounds, No tenderness Musculoskeletal: No tenderness Integumentary: No rashes Neurological: Normal gait, Normal speech, Normal strength at 5/5 x4 extr, Normal tone, Normal affect Lymphatics: No axilla or inguinal lymphadenopathy - Diagnosis (Problem(s)) (1) CHF exacerbation Current Visit: Yes Status: Acute Plan: Acute on chronic congestive heart failure systolic Qualifiers: Heart failure type: systolic Qualified Code(s): I50.23 - Acute on chronic systolic (congestive) heart failure (2) Dyspnea Onset Date: 06/10/14 Current Visit: No Status: Resolved Qualifiers: Dyspnea type: orthopnea Qualified Code(s): R06.01 - Orthopnea (3) Atrial flutter Current Visit: Yes Status: Acute Qualifiers: Atrial flutter type: typical Qualified Code(s): I48.3 - Typical atrial flutter (4) Benign essential hypertension Onset Date: 06/10/14 Current Visit: No Status: Chronic (5) Diabetes mellitus type 2 Onset Date: 06/10/14 Current Visit: No Status: Chronic (6) Hyperlipidemia Current Visit: No Status: Chronic (7) coronary artery disease Current Visit: No Status: Active Treatment Summary: Overall during the hospital stay patient remained stable Patient was initially admitted to the hospital for dyspnea was found to have CHF exacerbation was started on IV Lasix. Patient was also found to have atrial flutter while here in the hospital. Had stress test done here in the hospital along with an echocardiogram. Cardiology was consulted. Stress test was negative for any acute abnormality. Echocardiogram was consistent with systolic heart failure with ejection fraction of 44%. Patient had marked improvement with IV Lasix. Was switched over to oral Lasix and then was sent home under stable condition. Patient was educated extensively on medication compliance and take Lasix 40 mg b.i.d. daily. Patient was asked to follow up with cardiology in about 1-2 days post discharge as well. No other complications were noted. For patient's atrial flutter patient was given prescription for metoprolol and was asked to resume his or also that he takes at home already. No other complications were noted while here in the hospital and patient was discharged home under stable condition. - Disposition Disposition: ROUTINE DISCHARGE Condition: GOOD Patient Discharge Instructions: Please followup with PCP and cardiology in about 1-2 days post discharge. New medication. Metoprolol 50 mg b.i.d. Change Medication. Lasix 40 mg b.i.d. Continue taking all other medication as prescribed by her primary care doctor along with document preparer microfilming. Diet: Regular Activity: Ad ardiana
[2019-02-19 12:21] VITALS: BMI 43.7
--- NOTE | 2019-02-19 13:13 | PN ---
Subjective: Mr. Orozco was admitted by Dr. Harris on 02/18/[address] Lopez for shortness of breath, acute exacerbation of chronic systolic congestive heart failure. Echocardiogram that was done yesterday showed an ejection of 44%. Today, he has no complaints, saturations are normal on ro om air. He is not having any chest pain or shortness of breath. He has a Lexiscan that is pending. We will see what that shows prior to making final decisions. Mr. Orozco has a history of CABG and PCI in the past. BARRETT/KIAN Voice ID: [id number] Report ID: [id number]
== END 2019-02-19 12:51 | disposition home or self-care (01) ==
LOC: ER 08:27 → ERHOLD 11:48 → INTOOBSV 11:48 → 4TH 15:25
PROVIDERS: ADMIT Family Medicine; ATTEND Family Medicine
DX: I11.0 Hypertensive heart disease with heart failure (principal); I50.23 Acute on chronic systolic (congestive) heart failure; I48.3 Typical atrial flutter; E11.9 Type 2 diabetes mellitus without complications; E78.5 Hyperlipidemia, unspecified; I25.10 Atherosclerotic heart disease of native coronary artery without angina pectoris; I25.2 Old myocardial infarction; I48.2 Chronic atrial fibrillation; E66.9 Obesity, unspecified; Z68.41 Body mass index [BMI] 40.0-44.9, adult; Z79.84 Long term (current) use of oral hypoglycemic drugs; Z79.82 Long term (current) use of aspirin; Z79.899 Other long term (current) drug therapy; Z95.5 Presence of coronary angioplasty implant and graft; Z79.01 Long term (current) use of anticoagulants; Z95.1 Presence of aortocoronary bypass graft
CPT/HCPCS: 36415; 71045; 78452; 80048; 80053; 80061; 80076; 81003; 83735; 83880; 84100; 84484; 85025; 85610; 93005; 93017; 93306; 96374; 99285; A9500; G0378; J1940; J2785; J3475

== ENCOUNTER 2019-05-28 13:56 | Emergency (ER) | payer BC ==
[2019-05-28] MEDS ORDERED: ONDANSETRON 4 MG/2 ML VIAL ONE (15:25)
[2019-05-28] MEDS ORDERED: FENTANYL CITR 100 MCG/2 ML ONE (15:25)
[2019-05-28] MEDS ORDERED: METHOCARBAMOL 1,000 MG in NA CHLORIDE 0.9% 100 ML IV ONE (16:00)
[2019-05-28] MEDS ORDERED: NA CHLORIDE 0.9% 500 ML ONE (16:18)
--- NOTE | 2019-05-28 16:38 | RAD REPORT ---
EXAM DESCRIPTION: CT - Spine Lumbar Wo Con - 05/28/2019 3:54 pm CLINICAL HISTORY: Radiculopathy. Pain;Numbness/tingling COMPARISON: Chest Single View dated 02/18/2019; MRI LUMBAR SPINE W O CON dated 01/31/2015 TECHNIQUE: Axial noncontrast CT imaging of the lumbar spine was performed with coronal and sagittal re-formatted images. All CT scans are performed using dose optimization technique as appropriate and may include automated exposure control or mA/KV adjustment according to patient size. FINDINGS: No acute lumbar spine fracture seen. No aggressive marrow pattern or malalignment. Paraspinal tissues are normal in thickness. No paraspinal abscess or hematoma seen. Prominent posterior disc bulges are present at the lower lumbar levels with mild facet hypertrophy. IMPRESSION: No acute lumbar spine abnormality detected. Moderate lumbar spondylosis seen particularly at L4-5 and L5-S1. Consider nonemergent MRI follow-up f or assessment of disc disease if clinically desired.
[2019-05-28] MEDS ORDERED: HYDROCODONE/APAP 10/325 TAB ONE (17:05)
[2019-05-28] MEDS ORDERED: KETOROLAC 30 MG/ML INJ ONE (17:06)
--- NOTE | 2019-05-28 17:45 | ER ---
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 14:12 Transition of care: patient was not received from another setting of care. Onset of iw symptoms was May 12, 2019. Risk Assessment: Do you want to hurt yourself or someone else? Patient reports no desire to harm self or others. Initial Sepsis Screen: Does the patient meet any 2 criteria? No. Patient's initial sepsis screen is negative. Does the patient have a suspected source of infection? No. Patient's initial sepsis screen is negative. Care prior to arrival: None. 14:12 Method Of Arrival: Wheelchair iw 14:12 Acuity: ANALISA 3 iw Historical: - Allergies: 14:11 No Known Allergies; iw - PMHx: 14:11 Myocardial infarction; iw 14:12 psoriatic arthritis; iw - PSHx: 14:11 Appendectomy; CABG; cardiac stents; iw - Immunization history:: Adult Immunizations up to date. - Ebola Screening: : Patient negative for fever greater than or equal to 101.5 degrees Fahrenheit, and additional compatible Ebola Virus Disease symptoms Patient denies exposure to infectious person Patient denies travel to an Ebola-affected area in the 21 days before illness onset No symptoms or risks identified at this time. - Social history:: Smoking status: unknown. Screenin:31 Abuse screen: Denies threats or abuse. Nutritional screening: No deficits noted. tr5 Tuberculosis screening: No symptoms or risk factors identified. Fall Risk None identified. Assessment: 14:31 General: Appears uncomfortable, Behavior is cooperative. Pain: Complains of pain in tr5 right leg, right foot and buttocks Pain radiates to right foot Pain currently is 9 out of 10 on a pain scale. Quality of pain is described as aching, shooting, Pain began 2-3 days ago. Is continuous. Neuro: Level of Consciousness is awake, alert, obeys commands, Oriented to person, place, time, Photocopying Equipment Mechanic are equal bilaterally Moves all extremities. Cardiovascular: Heart tones present Capillary refill < 3 seconds Pulses are all present. Respiratory: Airway is patent Respiratory effort is even, unlabored, Respiratory pattern is symmetrical. GI: Reports diarrhea. : No signs and/or symptoms were reported regarding the genitourinary system. EENT: No signs and/or symptoms were reported regarding the EENT system. Derm: Skin is intact, Skin is dry, Skin is normal, Skin temperature is warm. Musculoskeletal: Capillary refill < 3 seconds, Range of motion: intact in all extremities. 15:26 Reassessment: Patient appears in no apparent distress at this time. Patient and/or tr5 family updated on plan of care and expected duration. Pain level reassessed. Patient is alert, oriented x 3, equal unlabored respirations, skin warm/dry/pink. 16:08 Reassessment: Patient appears in no apparent distress at this time. Patient and/or tr5 family updated on plan of care and expected duration. Pain level reassessed. Patient is alert, oriented x 3, equal unlabored respirations, skin warm/dry/pink. 17:07 Reassessment: Patient appears in no apparent distress at this time. Patient and/or tr5 family updated on plan of care and expected duration. Pain level reassessed. Patient is alert, oriented x 3, equal unlabored respirations, skin warm/dry/pink. Vital Signs: 14:12 BP 119 / 78; Pulse 95; Resp 18 S; Temp 97.7(A); Pulse Ox 97% on R/A; Weight 140.61 kg; iw Height 6 ft. 0 in. (182.88 cm); Pain 10/10; 15:25 BP 113 / 71; Pulse 97; Resp 18; Pulse Ox 95% on R/A; tr5 16:13 BP 88 / 65; Pulse 66; Resp 16; Pulse Ox 93% on R/A; tr5 17:07 BP 101 / 60; Pulse 99; Resp 18; Pulse Ox 96% ; tr5 14:12 Body Mass Index 42.04 (140.61 kg, 182.88 cm) iw ED Course: 13:58 Patient arrived in ED. as 14:01 Serafin Maloney, RN is Primary Nurse. tr5 14:10 Assisted to bathroom. tr5 14:12 Arm band placed on. iw 14:14 Triage completed. iw 14:31 Placed in gown. Bed in low position. Call light in reach. Side rails up X 1. Pulse ox tr5 on. NIBP on. 14:54 Corey Packer PA is PHCP. jr8 14:54 Devyn Walker MD is Attending Physician. jr8 15:23 Inserted saline lock: 22 gauge in left antecubital area, using aseptic technique. tr5 15:[address] Scan. tr5 15:[address] tr5 15:54 CT Lumbar Spine Wo Con In Process Unspecified. EDMS 18:01 No provider procedures requiring assistance completed. IV discontinued. tr5 Administered Medications: 15:31 Drug: Zofran 4 mg Route: IVP; Site: left antecubital; tr5 16:06 Follow up: Response: Marked relief of symptoms tr5 15:32 Drug: fentaNYL (PF) 50 mcg {Note: RASS:0 .} Route: IVP; Site: left antecubital; tr5 16:06 Follow up: Response: Marked relief of symptoms; RASS: Alert and Calm (0) tr5 16:06 Drug: Robaxin 1 grams Route: IVPB; Infused Over: 1 hrs; Site: left antecubital; tr5 16:30 Follow up: IV Status: Completed infusion; IV Intake: 100ml tr5 16:20 Drug: NS 0.9% 500 ml Route: IV; Rate: bolus; Site: left antecubital; tr5 17:02 Follow up: IV Status: Completed infusion; IV Intake: 500ml tr5 17:06 Drug: Gifford 10 mg-325 mg 1 tabs {Note: RASS:0.} Route: PO; tr5 18:01 Follow up: Response: Pain is decreased; RASS: Alert and Calm (0) tr5 17:07 Drug: TORadol - Ketorolac 15 mg Route: IVP; Site: left antecubital; tr5 18:01 Follow up: Response: Pain is decreased tr5 Intake: 16:30 IV: 100ml; Total: 100ml. tr5 17:02 IV: 500ml; Total: 600ml. tr5 Outcome: 17:44 Discharge ordered by MD. amaya 18:01 Discharged to home via wheelchair. tr5 18:01 Condition: stable 18:01 Discharge instructions given to patient. 18:42 Patient left the ED. tr5 Signatures: Dispatcher [employer] Nohelia Fernández Irene, RN RN Corey Packer PA PA jr8 Serafin Maloney RN RN tr5 Corrections: (The following items were deleted from the chart) 14:14 14:11 Presenting complaint: iw 16:06 15:32 fentaNYL (PF) 50 mcg IVP in left antecubital tr5 tr5 17:06 17:06 Gifford 10 mg-325 mg 1 tabs PO tr5 tr5 18:01 18:00 Response: Pain is decreased tr5 tr5
--- NOTE | 2019-05-28 17:46 | EDPHYS ---
Physician Documentation [facility] Name: Gucci Orozco Age: 63 yrs Sex: Male : 1955 Arrival Date: 05/28/2019 Time: 13:58 Bed 28 Private MD: ED Physician Devyn Walker HPI: 05/28 16:27 This 63 yrs old Male presents to ER via Wheelchair with complaints of Back jr8 Pain, Hip Pain. 16:27 The patient presents with pain that is acute. The symptoms are located in the low back. jr8 Onset: The symptoms/episode began/occurred suddenly, 2 day(s) ago, and became worse and became persistent. radiation down right leg. Associated signs and symptoms: The patient has no apparent associated signs or symptoms. The problem was sustained from unknown cause. Modifying factors: The patient symptoms are alleviated by nothing, the patient symptoms are aggravated by any movement. Severity of symptoms: At their worst the symptoms were moderate, in the emergency department the symptoms are unchanged. The patient has not experienced similar symptoms in the past. The patient has not recently seen a physician. Historical: - Allergies: 14:11 No Known Allergies; iw - PMHx: 14:11 Myocardial infarction; iw 14:12 psoriatic arthritis; iw - PSHx: 14:11 Appendectomy; CABG; cardiac stents; iw - Immunization history:: Adult Immunizations up to date. - Ebola Screening: : Patient negative for fever greater than or equal to 101.5 degrees Fahrenheit, and additional compatible Ebola Virus Disease symptoms Patient denies exposure to infectious person Patient denies travel to an Ebola-affected area in the 21 days before illness onset No symptoms or risks identified at this time. - Social history:: Smoking status: unknown. ROS: 16:27 Eyes: Negative for injury, pain, redness, and discharge, ENT: Negative for injury, jr8 pain, and discharge, Neck: Negative for injury, pain, and swelling, Cardiovascular: Negative for chest pain, palpitations, and edema, Respiratory: Negative for shortness of breath, cough, wheezing, and pleuritic chest pain, Abdomen/GI: Negative for abdominal pain, nausea, vomiting, diarrhea, and constipation, MS/Extremity: Negative for injury and deformity, Skin: Negative for injury, rash, and discoloration, Neuro: Negative for headache, weakness, numbness, tingling, and seizure. 16:27 Back: Positive for pain at rest, pain with movement, radiated pain, of the low back area. Exam: 16:27 Eyes: Pupils equal round and reactive to light, extra-ocular motions intact. Lids and jr8 lashes normal. Conjunctiva and sclera are non-icteric and not injected. Cornea within normal limits. Periorbital areas with no swelling, redness, or edema. ENT: Nares patent. No nasal discharge, no septal abnormalities noted. Tympanic membranes are normal and external auditory canals are clear. Oropharynx with no redness, swelling, or masses, exudates, or evidence of obstruction, uvula midline. Mucous membranes moist. Neck: Trachea midline, no thyromegaly or masses palpated, and no cervical lymphadenopathy. Supple, full range of motion without nuchal rigidity, or vertebral point tenderness. No Meningismus. Cardiovascular: Regular rate and rhythm with a normal S1 and S2. No gallops, murmurs, or rubs. Normal PMI, no JVD. No pulse deficits. Respiratory: Lungs have equal breath sounds bilaterally, clear to auscultation and percussion. No rales, rhonchi or wheezes noted. No increased work of breathing, no retractions or nasal flaring. Abdomen/GI: Soft, non-tender, with normal bowel sounds. No distension or tympany. No guarding or rebound. No evidence of tenderness throughout. Skin: Warm, dry with normal turgor. Normal color with no rashes, no lesions, and no evidence of cellulitis. MS/ Extremity: Pulses equal, no cyanosis. Neurovascular intact. Full, normal range of motion. Neuro: Awake and alert, GCS 15, oriented to person, place, time, and situation. Cranial nerves II-XII grossly intact. Motor strength 5/5 in all extremities. Sensory grossly intact. Cerebellar exam normal. Normal gait. 16:27 Back: pain, that is moderate, of the right low back, ROM is painful, normal spinal alignment noted, CVA tenderness, is absent, vertebral tenderness, is not appreciated. Vital Signs: 14:12 BP 119 / 78; Pulse 95; Resp 18 S; Temp 97.7(A); Pulse Ox 97% on R/A; Weight 140.61 kg; iw Height 6 ft. 0 in. (182.88 cm); Pain 10/10; 15:25 BP 113 / 71; Pulse 97; Resp 18; Pulse Ox 95% on R/A; tr5 16:13 BP 88 / 65; Pulse 66; Resp 16; Pulse Ox 93% on R/A; tr5 17:07 BP 101 / 60; Pulse 99; Resp 18; Pulse Ox 96% ; tr5 14:12 Body Mass Index 42.04 (140.61 kg, 182.88 cm) iw MDM: 15:29 Patient medically screened. jr8 17:42 Data reviewed: vital signs, nurses notes, radiologic studies, CT scan. Data jr8 interpreted: Pulse oximetry: on room air is 96 %. Interpretation: normal. Counseling: I had a detailed discussion with the patient and/or guardian regarding: the historical points, exam findings, and any diagnostic results supporting the discharge/admit diagnosis, radiology results, the need for outpatient follow up, a family practitioner, to return to the emergency department if symptoms worsen or persist or if there are any questions or concerns that arise at home. Response to treatment: the patient's symptoms have markedly improved after treatment. 05/28 15:03 Order name: CT Lumbar Spine Wo Con; Complete Time: 16:50 jr8 05/28 15:03 Order name: IV; Complete Time: 15:27 jr8 Administered Medications: 15:31 Drug: Zofran 4 mg Route: IVP; Site: left antecubital; tr5 16:06 Follow up: Response: Marked relief of symptoms tr5 15:32 Drug: fentaNYL (PF) 50 mcg {Note: RASS:0 .} Route: IVP; Site: left antecubital; tr5 16:06 Follow up: Response: Marked relief of symptoms; RASS: Alert and Calm (0) tr5 16:06 Drug: Robaxin 1 grams Route: IVPB; Infused Over: 1 hrs; Site: left antecubital; tr5 16:30 Follow up: IV Status: Completed infusion; IV Intake: 100ml tr5 16:20 Drug: NS 0.9% 500 ml Route: IV; Rate: bolus; Site: left antecubital; tr5 17:02 Follow up: IV Status: Completed infusion; IV Intake: 500ml tr5 17:06 Drug: Gilroy 10 mg-325 mg 1 tabs {Note: RASS:0.} Route: PO; tr5 18:01 Follow up: Response: Pain is decreased; RASS: Alert and Calm (0) tr5 17:07 Drug: TORadol - Ketorolac 15 mg Route: IVP; Site: left antecubital; tr5 18:01 Follow up: Response: Pain is decreased tr5 Disposition: 05/28/19 17:44 Discharged to Home. Impression: Radiculopathy, lumbar region. - Condition is Stable. - Discharge Instructions: Lumbosacral Radiculopathy, Back Exercises. - Prescriptions for Mobic 7.5 mg Oral Tablet - take 1 tablet by ORAL route once daily take with food; 20 tablet. Skelaxin 800 mg Oral Tablet - take 1 tablet by ORAL route every 6 hours As needed; 40 tablet. Tylenol- Codeine #3 300-30 mg Oral Tablet - take 2 tablets by ORAL route every 6 hours As needed; 12 tablet. - Medication Reconciliation Form, Thank You Letter, Antibiotic Education, Prescription Opioid Use form. - Follow up: Private Physician; When: 5 - 6 days; Reason: Recheck today's complaints, Continuance of care, Re-evaluation by your physician. - Problem is new. - Symptoms have improved. Addendum: 06/02/2019 14:40 Co-signature as Attending Physician, Devyn Walker MD. g s Signatures: Dispatcher [employer] Christel Green RN RN iw Roszak, Josh, PA PA jr8 Devyn Walker MD MD gs Rodriguez, Tommie, RN RN tr5 Corrections: (The following items were deleted from the chart) 05/28 18:42 17:44 05/28/2019 17:44 Discharged to Home. Impression: Radiculopathy, lumbar region. tr5 Condition is Stable. Forms are Medication Reconciliation Form, Thank You Letter, Antibiotic Education, Prescription Opioid Use. Follow up: Private Physician; When: 5 - 6 days; Reason: Recheck today's complaints, Continuance of care, Re-evaluation by your physician. Problem is new. Symptoms have improved. jr8
[2019-05-28 20:57] VITALS: TEMP 97.7
[2019-05-28 21:01] VITALS: BP 101/60; O2SAT 96
== END 2019-05-28 18:42 | disposition home or self-care (01) ==
LOC: ER 13:56
DX: M54.16 Radiculopathy, lumbar region (principal); Z95.5 Presence of coronary angioplasty implant and graft; Z95.1 Presence of aortocoronary bypass graft; I25.2 Old myocardial infarction
CPT/HCPCS: 96365; 96361; 72131; 96375; 99284; J3010; J2405; J2800

== ENCOUNTER 2020-01-02 07:18 | Emergency (ER) | payer BC ==
--- OUTSIDE RECORDS SUMMARY | 2020-01-02 07:19 | XMS REPORT ---
:1955 Author Organization [facility] Address [address] [place] [address] Dr. Goodman [address] [place] [id number] Care Team Providers Name Role Phone Unavailable Unavailable Unavailable Problems This patient has no known problems. Allergies, Adverse Reactions, Alerts This patient has no known allergies or adverse reactions. Medications This patient has no known medications.
[2020-01-02] MEDS ORDERED: TETRACAINE HCL 0.5% 4ML OPTH ONE (07:53)
[2020-01-02] MEDS ORDERED: FLUORESCEIN SODIUM 1 MG/WRAP ONE (07:53)
--- NOTE | 2020-01-02 08:09 | ER ---
Nurse's Notes [facility] Name: Gucci Orozco Age: 64 yrs Sex: Male : 1955 Arrival Date: 01/02/2020 Time: 07:21 Bed 2 Private MD: Onesimo Rubin H Diagnosis: Foreign body in cornea, right eye Presentation: 01/01 07:25 Chief complaint: Patient states: He was working on his car yesterday and got something rb1 in his eye. His eye feels irritated and has clear drainage. Coronavirus screen: Proceed with normal triage. Ebola Screen: Patient negative for fever greater than or equal to 101.5 degrees Fahrenheit, and additional compatible Ebola Virus Disease symptoms Patient denies travel to an Ebola-affected area in the 21 days before illness onset. Mechanism of Injury: Eye irritation. The patient denies any loss of vision. Initial Sepsis Screen: Does the patient meet any 2 criteria? No. Patient's initial sepsis screen is negative. Does the patient have a suspected source of infection? No. Patient's initial sepsis screen is negative. Risk Assessment: Do you want to hurt yourself or someone else? Patient reports no desire to harm self or others. Onset of symptoms was January 01, 2020. 07:25 Method Of Arrival: Ambulatory rb1 07:25 Acuity: ANALISA 3 rb1 Triage Assessment: 07:25 General: Appears in no apparent distress. comfortable, obese, Behavior is calm, rb1 cooperative. Pain: Complains of pain in right eye Pain currently is 1 out of 10 on a pain scale. Pain began 1 day ago. EENT: Eyes are tearing on right eye. EENT: Eyes redness noted to the right sclera.. Neuro: Level of Consciousness is awake, alert, obeys commands, Oriented to person, place, time, situation. Cardiovascular: Capillary refill < 3 seconds. Respiratory: Airway is patent Respiratory effort is even, unlabored, Respiratory pattern is regular, symmetrical. GI: No signs and/or symptoms were reported involving the gastrointestinal system. : No signs and/or symptoms were reported regarding the genitourinary system. Derm: Skin is pink, warm \T\ dry. Historical: - Allergies: 07:25 No Known Allergies; rb1 - Home Meds: 07:25 Furosemide Oral [Active]; rb1 - PMHx: 07:25 Myocardial infarction; Psoriatic Arthritis; rb1 - PSHx: 07:25 Appendectomy; CABG; rb1 - Immunization history:: Adult Immunizations up to date. - Social history:: Smoking status: Patient/guardian denies using. Screenin:25 Abuse screen: Denies threats or abuse. Nutritional screening: No deficits noted. rb1 Tuberculosis screening: No symptoms or risk factors identified. Fall Risk None identified. Assessment: 07:25 General: See triage assessment. rb1 07:25 EENT: Sclera/Cornea are reddened in right eye. rb1 08:20 Reassessment: PT D/C HOME AMBULATORY, DX WITH FB IN R CORNEA. bp Vital Signs: 07:25 BP 138 / 77; Pulse 80; Resp 20; Temp 98.5(O); Pulse Ox 96% on R/A; Weight 136.08 kg rb1 (R); Height 6 ft. 0 in. (182.88 cm) (R); Pain 1/10; 08:19 BP 116 / 82; Pulse 86; Resp 16; Pulse Ox 95% ; bp 07:25 Body Mass Index 40.69 (136.08 kg, 182.88 cm) rb1 Visual Acuity: 07:45 Left Eye Visual acuity 20/15, Pupil size 3 mm, ; Right Eye Visual acuity 20/40, Pupil rb1 size 3 mm, ; Without Lenses; ED Course: 07:21 Patient arrived in ED. ag5 07:22 Onesimo Rubin DO is Private Physician. ag5 07:25 Arm band placed on right wrist. rb1 07:25 Patient has correct armband on for positive identification. Bed in low position. Call rb1 light in reach. Side rails up X 1. Pulse ox on. NIBP on. 07:26 Saúl Braun PA is PHCP. cp 07:26 Demetrius Arguelles MD is Attending Physician. cp 07:30 Lidya Quan, RN is Primary Nurse. rb1 07:42 Triage completed. rb1 08:05 Tu Patel MD is Referral Physician. cp 08:20 No provider procedures requiring assistance completed. Patient did not have IV access bp during this emergency room visit. Administered Medications: 08:00 Drug: Tetracaine Drops 0.5 % 1 drops Route: Ophthalmic; Site: right eye; bp Outcome: 08:08 Discharge ordered by . cp 08:20 Discharged to home ambulatory. bp 08:20 Condition: stable 08:20 Discharge instructions given to patient, Instructed on discharge instructions, follow up and referral plans. medication usage, Demonstrated understanding of instructions, follow-up care, medications, Prescriptions given X 1. 08:21 Patient left the ED. bp Signatures: Saúl Braun PA PA cp Barber, Rebecca, RN RN rb1 Samy Villegas RN RN bp Gabby Dorantes ag5
--- NOTE | 2020-01-02 08:09 | EDPHYS ---
Physician Documentation [facility] Name: Gucci Orozco Age: 64 yrs Sex: Male : 1955 Arrival Date: 01/02/2020 Time: 07:21 Bed 2 Private MD: Onesimo Rubin H ED Physician Demetrius Arguelles HPI: 01/01 07:40 This 64 yrs old Male presents to ER via Unassigned with complaints of Eye cp Pain. 07:40 The patient is experiencing foreign body sensation, pain, redness, to the right eye. cp Onset: The symptoms/episode began/occurred yesterday. 07:40 Associated signs and symptoms: Pertinent positives: runny nose, Pertinent negatives: cp fever. 07:40 Patient reports he was grinding metal while working under car yesterday. cp Historical: - Allergies: 07:25 No Known Allergies; rb1 - Home Meds: 07:25 Furosemide Oral [Active]; rb1 - PMHx: 07:25 Myocardial infarction; Psoriatic Arthritis; rb1 - PSHx: 07:25 Appendectomy; CABG; rb1 - Immunization history:: Adult Immunizations up to date. - Social history:: Smoking status: Patient/guardian denies using. ROS: 07:42 Constitutional: Negative for body aches, chills, fever. cp 07:42 Eyes: Positive for foreign body sensation, pain, redness, clear drainage. 07:42 ENT: Negative for drainage from ear(s), ear pain, sore throat, difficulty swallowing, difficulty handling secretions. 07:42 Respiratory: Negative for cough, shortness of breath, wheezing. 07:42 Abdomen/GI: Negative for abdominal pain, vomiting, diarrhea, constipation. 07:42 Skin: Negative for rash. 07:42 Neuro: Negative for headache. 07:42 All other systems are negative. Exam: 07:50 Visual Acuity: I have reviewed the nursing documentation. cp 07:50 Head/Face: Normocephalic, atraumatic. cp 07:50 Constitutional: The patient appears in no acute distress, alert, awake, non-toxic, well developed, well nourished. 07:50 Eyes: Periorbital structures: appear normal, Pupils: equal, round, and reactive to light and accomodation, Extraocular movements: intact throughout, Conjunctiva: injected, in the right eye, Corneas: abrasion, that is small, on the right, mid central and lower cornea, foreign body, on the right, at 6 o'clock, a piece of metal, a fluorescein strip employed to appreciate the findings, Anterior chamber: normal, Lids and lashes: appear normal, on the right, Examination of the other eye reveals no obvious gross abnormality, left eye. 07:50 ENT: External ear(s): are unremarkable, Ear canal(s): are normal, clear, TM's: dullness, bilaterally, Nose: is normal, Mouth: is normal, Posterior pharynx: is normal, airway is patent. 07:50 Chest/axilla: Inspection: normal. 07:50 Cardiovascular: Rate: normal. 07:50 Respiratory: the patient does not display signs of respiratory distress, Respirations: normal. 07:50 Skin: no rash present. Vital Signs: 07:25 BP 138 / 77; Pulse 80; Resp 20; Temp 98.5(O); Pulse Ox 96% on R/A; Weight 136.08 kg rb1 (R); Height 6 ft. 0 in. (182.88 cm) (R); Pain 1/10; 08:19 BP 116 / 82; Pulse 86; Resp 16; Pulse Ox 95% ; bp 07:25 Body Mass Index 40.69 (136.08 kg, 182.88 cm) rb1 Visual Acuity: 07:45 Left Eye Visual acuity 20/15, Pupil size 3 mm, ; Right Eye Visual acuity 20/40, Pupil rb1 size 3 mm, ; Without Lenses; Procedures: 08:04 Foreign Body Removal: a metal shaving, from the right eye, cornea without use of slit cp lamp by using a cotton-tipped swab, The patient tolerated the removal well. MDM: 07:27 Patient medically screened. cp 08:03 Differential diagnosis: Corneal abrasion of right eye. Foreign body in right eye. Acute cp iritis of right eye. Acute glaucoma in right eye. Infectious conjunctivitis in right eye. Data reviewed: vital signs, nurses notes, I have discussed the patient's presentation/case with the attending Emergency Department Physician; and as a result, I will discharge patient. 01/01 07:27 Order name: Visual Acuity; Complete Time: 07:50 cp 01/01 07:42 Order name: Eye Tray; Complete Time: 07:50 cp 01/01 07:42 Order name: Fluoresene Opth strip; Complete Time: 07:50 cp Administered Medications: 08:00 Drug: Tetracaine Drops 0.5 % 1 drops Route: Ophthalmic; Site: right eye; bp Disposition: 08:25 Chart complete. cp 08:31 Co-signature as Attending Physician, Demetrius Arguelles MD. rn Disposition: 01/02/20 08:08 Discharged to Home. Impression: Foreign body in cornea, right eye. - Condition is Stable. - Discharge Instructions: Corneal Abrasion, Eye Foreign Body. - Prescriptions for Gentamicin 0.3 % (3 mg/gram) Ophthalmic Ointment - apply 0.5 inch by OPHTHALMIC route 2-3 times daily for 7 days; 3.5 gram. - Medication Reconciliation Form, Thank You Letter, Antibiotic Education, Prescription Opioid Use form. - Follow up: Tu Patel MD; When: 1 - 2 days; Reason: Recheck today's complaints. - Problem is new. - Symptoms have improved. Signatures: Demetrius Arguelles MD MD rn Saúl Braun PA PA cp Lidya Quan, BIA RN rb1 Samy Villegas RN RN Corrections: (The following items were deleted from the chart) 08:21 08:08 01/02/2020 08:08 Discharged to Home. Impression: Foreign body in cornea, right bp eye. Condition is Stable. Forms are Medication Reconciliation Form, Thank You Letter, Antibiotic Education, Prescription Opioid Use. Follow up: Tu Patel; When: 1 - 2 days; Reason: Recheck today's complaints. Problem is new. Symptoms have improved. cp
== END 2020-01-02 08:21 | disposition home or self-care (01) ==
LOC: ER 07:18
PROC: 08C8XZZ Extirpation of Matter from Right Cornea, External Approach (ICD-10-PCS; principal; 2020-01-02)
DX: T15.01XA Foreign body in cornea, right eye, initial encounter (principal); I25.2 Old myocardial infarction; Z95.1 Presence of aortocoronary bypass graft
CPT/HCPCS: 99283

== ENCOUNTER 2021-08-07 10:48 | Day surgery (SDC) | payer BC ==
--- NOTE | 2021-08-03 10:18 | RAD REPORT ---
EXAM DESCRIPTION: RAD - Chest Pa And Lat (2 Views) - 08/03/2021 9:50 am CLINICAL HISTORY: Pre-cath procedure COMPARISON: Portable January 2019 TECHNIQUE: Frontal and lateral views of the chest were obtained. FINDINGS: The lungs are underinflated with no peripheral mass or consolidations seen. Interstitial p attern is prominent mostly due to low lung volumes. Interstitial pattern is diminished from the prior study. A very minimal edema or infiltrate could be masked. Sternotomy wires are in place. Heart size is normal and central vasculature is within normal limits . No pleural effusion or pneumothorax seen. No acute bony finding noted. No aortic abnormality. IMPRESSION: No acute cardiopulmonary process. Prominent bibasilar interstitial pattern is believed be baseline for the patient, accentuated by shal low inspiration.
[2021-08-03 10:39] LABS: Protime INR 0.98
[2021-08-03 10:45] LABS: Absolute Lymphocytes (CBC) 1.5 K/uL (0.7-4.9); Hematocrit 40.2 % (39.6-49.0); Lymphocytes % 26.1 % (15.3-44.8); MPV 8.9 fL (7.6-11.3); RBC Red Blood Cell Count 4.29 M/uL (4.33-5.43)
[2021-08-03 10:46] LABS: Potassium 5.4 mmol/L (3.5-5.1)
[2021-08-07] MEDS ORDERED: NA CHLORIDE 0.9% 500 ML ONE (10:55)
[2021-08-07] MEDS ORDERED: HEPA 1000U/500MLS 2,000 UNIT/1,000 ML BAG IV ONE (11:40)
[2021-08-07] MEDS ORDERED: LIDOCAINE 1% 20 ML MDV ONE (11:40)
[2021-08-07 11:45] LABS: Potassium 4.9 mmol/L (3.5-5.1)
[2021-08-07] MEDS ORDERED: MIDAZOLAM HCL 2 MG/2 ML INJ ONE (11:52)
[2021-08-07] MEDS ORDERED: ATROPINE SULF 1 MG/10 ML SYR IV ONE (11:53)
[2021-08-07] MEDS ORDERED: VERAPAMIL HCL 10 MG/4 ML VIAL IV ONE (11:53)
[2021-08-07] MEDS ORDERED: FENTANYL CITR 100 MCG/2 ML ONE (11:53)
[2021-08-07] MEDS ORDERED: HEPARIN 5000 UNIT/ML 1 ML VIAL ONE (11:53)
[2021-08-07] MEDS ORDERED: NITROGLYCERIN 100 MCG/ML SYR (for cath lab use only) IV ONE (11:53)
[2021-08-07] MEDS ORDERED: NITROGLYCERIN/D5W 25 MG/250 ML BTL IV ONE (11:54)
[2021-08-07 14:06] VITALS: TEMP 97.5
--- NOTE | 2021-08-07 14:15 | OP ---
Date of Procedure: 08/07/2021 Surgeon: ABHIJEET EPSTEIN Procedure Performed: Selective coronary angiogram with bypass graft study. Indication: Abnormal stress test with shortness of breath. Access: Right radial artery 6-Moroccan closed with TR band. Complications: None. Bleeding: Less than 10 mL. Description Of Procedure: After risks, benefits, and alternatives were explained, the patient agreed to the procedure and signed informed consent. The patient was brought into the cardiac catheterizat ion laboratory, prepped and draped in usual sterile fashion. Then accessed right radial artery using pediatric micropuncture kit and placed a 6-Moroccan Slender sheath. I took a 6-Moroccan JL 3.5 catheter into the aortic root and engaged the left main, took standard views and then exchanged for a 6-Frenc h JR4 catheter and engaged the RCA. Then using an AL1 catheter, engaged the SVG graft to the LAD and then using AR1 catheter, engaged the SVG graft to the RCA and then removed the catheter and sheath. Placed TR band with good hemostasis. The aortic root shot was done as well. Findings: 1.Left main is normal. 2.LAD, proximal [employer]LECT[employer]LATING SALES REPRESENT[employer]IVE with patent SVG to mid LAD. 3.Left circumflex, mid ELECT[employer]LATING SALES REPRESENT[employer]IVE with patent SVG to OM. 4.RCA, mid 90% and distal 100% with occluded SVG to the distal RCA, but with good collaterals from t he left to the PDA. Grafts: 1.Patent SVG to LAD. 2.Patent SVG to OM. 3.Occluded SVG to RCA with collaterals from left to right. Conclusion: Coronary artery disease as above with patent SVG graft to LAD and SVG graft to the OM, a nd occluded SVG graft to RCA with collaterals from left to right. Plan: Medical management. SR/MODL Voice ID: [id number] Report ID: [id number]
[2021-08-07 15:36] VITALS: BP 102/47; O2SAT 93
== END 2021-08-07 16:00 | disposition home or self-care (01) ==
LOC: CCL 10:48
PROVIDERS: ATTEND Internal Medicine
DX: I25.10 Atherosclerotic heart disease of native coronary artery without angina pectoris (principal); I25.82 Chronic total occlusion of coronary artery; I11.0 Hypertensive heart disease with heart failure; I50.22 Chronic systolic (congestive) heart failure; I48.91 Unspecified atrial fibrillation; E11.9 Type 2 diabetes mellitus without complications; E78.5 Hyperlipidemia, unspecified; Z79.01 Long term (current) use of anticoagulants; Z87.891 Personal history of nicotine dependence; Z20.822 Contact with and (suspected) exposure to COVID-19; Z82.49 Family history of ischemic heart disease and other diseases of the circulatory system
CPT/HCPCS: 85025; 80048 ×2; 36415 ×2; 85610; 82947 ×2; 85730; 71046; 93458; U0003; C1893; C1887; J1644 ×2; J2250; J3010; J7040

== ENCOUNTER 2021-09-14 08:28 | Emergency (ER) | payer BC ==
[2021-09-14] MEDS ORDERED: AMIODARONE HCL 150 MG/3 ML INJ IV ONE (08:29)
[2021-09-14] MEDS ORDERED: EPINEPHrine 1 MG/10 ML SYR IV ONE (08:29)
--- OUTSIDE RECORDS SUMMARY | 2021-09-14 08:51 | XMS REPORT | Continuity of Care Document ---
:1955 Author Organization [facility] t Address [address] [place] [address] Care Team Providers Name Role Phone Raimundo Rubin DO Primary Care Physician Apolinar Attending Clinician Unavailable Phill LOUIE Attending Clinician Unavailable Sanjeev Kimball MD Attending Clinician Calixto Fields MA Attending Clinician Unavailable Ary Rubin Admitting Clinician Unavailable Apolinar Admitting Clinician Unavailable Payers Payer Name Policy Type Policy Number Effective Date Expiration Date S ource Problems Condition Condition Condition Status Onset Resolution Last Treating Co mments Source Name Details Category Date Date Treatment Clinician Date Intractabl Intractabl Disease Active 2018-09 M ethodi e pain e pain 018 [facility] 00:00: Hospita 00 l Hyponatrem Hyponatrem Disease Active 2018-09 M ethodi ia ia 0-18 st 00:00: Hospita 00 l Hyperkalem Hyperkalem Disease Active 2018-09 M ethodi ia ia 0-18 st 00:00: Hospita 00 l Sciatica Sciatica Disease Active 2018-09 Metho di of right of right 0-17 st side side 00:00: Hospita 00 l Psoriatic Psoriatic Disease Active Met [facility]odi arthritis arthritis 918 st 00:00: Hospita 00 l Pain and Pain and Disease Active Metho di swelling swelling 9-18 st of knee, of knee, 00:00: Hospit a right right 00 l Allergies, Adverse Reactions, Alerts Allergy Allergy Status Severity Reaction(s) Onset Inactive Treating Comm ents Source Name Type Date Date Clinician No Known DA Active [facility] Allergie 05-29 Clear s 00:00: Rogers 00 [facility] No Known DA Active U [facility] Allergie 05-29 Clear s 00:00: Rogers 00 [facility] Family History Family Member Diagnosis Comments Start Date Stop Date Source Natural father Cancer [facility] Social History Social Habit Start Date Stop Date Quantity Comments Source Tobacco use and 2019-09-29 2019-09-29 Never used Uatsdin exposure 00:00:00 00:00:00 Hospital Alcohol intake 2019-09-29 2019-09-29 Current drinker of Me thodist 00:00:00 00:00:00 alcohol (finding) [facility] Tobacco Comment 2019-05-20 2019-05-20 quit x 10 years Meth odist 00:00:00 00:00:00 [facility] Alcohol Comment 2019-05-20 2019-05-20 occasional Uatsdin 00:00:00 00:00:00 [facility] Sex Ass[birth year] At [birth year] U[facility]din 00:00:00 00:00:00 [facility] Smoking Status Start Date Stop Date Source Former smoker 2019-09-29 00:00:00 2019-09-29 00:00:00 [facility] Medications Ordered Filled Start Stop Current Ordering Indication Dosage Frequency Signature Comments Components Source Medication Medication Date Date Medication? Clinician (SIG) Name Name folic acid 2021- No [id number] 1mg QD Take 1 Methodi (FOLVITE) 1 09-28 tablet (1 st MG tablet 00:00: 05:59 mg total) Ho spita 00 :00 by mouth l daily. methotrexat 2021- No [id number] 25mg Q7D Take 10 Methodi e 2.5 MG 09-[address] tablet 00:00: 05:59 (25 mg Hospita 00 :00 total) by l mouth once a week. methotrexat 2020- No [id number] 25mg Q7D Take 10 Methodi e 2.5 MG 09-[address] tablet 00:00: 00:00 (25 mg Hospita 00 :00 total) by l mouth once a week. secukinumab 2019-09 Yes Cosentyx Me thodi (Cosentyx 1-[address] Pen, 2 00:00: mg/2 [facility],) 150 00 (150 l mg/mL pen mg/mL) injector subcutaneo us every 4 weeks. secukinumab 2019-09- No Cosentyx M ethodi (Cosentyx 1- 11- Pen 300 st Pen, 2 00:00: 00:00 mg/2 [facility],) 150 00 :00 (150 l mg/mL pen mg/mL) injector subcutaneo us methotrexat 2019-09- No [id number] 20mg Q7D Take 8 Methodi e 2.5 MG 009-[address] tablet 00:00: 00:00 (20 mg Hospita 00 :00 total) by l mouth once a week. folic acid 2019-09 No [id number] 1mg QD Take 1 Methodi (FOLVITE) 1 09-28 tablet (1 st MG tablet 00:00: 00:00 mg total) Ho spita 00 :00 by mouth l daily. secukinumab 2019-09- No Cosentyx M ethodi (Cosentyx 0-28 - Pen 300 st Pen, 2 00:00: 00:00 mg/2 [facility],) 150 00 :00 (150 l mg/mL pen mg/mL) injector subcutaneo us secukinumab 2019-09- No Cosentyx M ethodi (Cosentyx 0-28 - Pen 300 st Pen, 2 00:00: 00:00 mg/2 [facility],) 150 00 :00 (150 l mg/mL pen mg/mL) injector subcutaneo us secukinumab 2019-09- No Cosentyx M ethodi (Cosentyx 0-28 -[address] Pen, 2 00:00: 00:00 mg/2 [facility],) 150 00 :00 (150 l mg/mL pen mg/mL) injector subcutaneo us folic acid 2019- No [id number] 1mg QD Take 1 [facility] (FOLVITE) 1 -28 10- tablet (1 st MG tablet 00:00: 00:00 mg total) Ho spita 00 :00 by mouth l daily. methotrexat 2020-0 2020- No [id number] 20mg Q7D Take 8 Methodi e 2.5 MG -28 10-[address] tablet 00:00: 00:00 (20 mg Hospita 00 :00 total) by l mouth once a week. secukinumab 2019-0 2020- No Cosentyx M ethodi (Cosentyx -28 - Pen 300 st Pen, 2 00:00: 00:00 mg/2 [facility],) 150 00 :00 (150 l mg/mL pen mg/mL) injector subcutaneo us lisinopril 2020-0 Yes 10mg QD Take 10 mg M ethodi (PRINIVIL,Z - by mouth st ESTRIL) 10 15:18: daily. Hospi ta mg tablet 42 l glipiZIDE 2020-0 Yes 10mg Q.5D Take 10 mg Me thodi (GLUCOTROL) 1-[address] 10 MG 15:18: (two) Hospita tablet 42 times a l day before meals. rivaroxaban 2020-0 Yes 20mg QD Take 20 mg Methodi (XARELTO) 1-[address] 20 mg 15:18: daily. Hospita tablet 42 l potassium 2020-0 Yes 10meq Q.5D Take 10 Meth elias chloride 1-[address] (K-DUR,KLOR 15:18: mouth 2 Hos yani -CON) 10 42 (two) l MEQ CR times a tablet day. metaxalone 2020-0 Yes 800mg Q6H Take 800 Me th[facility] (SKELAXIN) 1-[address] 800 MG 15:18: mouth Hospita tablet 42 every 6 l (six) hours as needed for muscle spasms. metFORMIN 2019-0 Yes 1000mg Q.5D Take 1,000 Methodi (GLUCOPHAGE 9-[address] ) 1,000 mg 00:00: mouth 2 Hosp carlo tablet 00 (two) l times a day. ranolazine 2019-0 Yes 500mg Q.5D 500 mg 2 Me thodi (RANEXA) 9-14 (two) st 500 MG 12 00:00: times a Hospi ta hr ER 00 day. l tablet pregabalin 2019-0 Yes 300mg Q.5D 300 mg 2 Me thodi (LYRICA) 8-21 (two) st 300 MG 00:00: times a Hospita capsule 00 day. l VASCEPA 1 2019-0 Yes Methodi gram 8-05 st capsule 00:00: Hospita 00 l metoprolol 2019-0 Yes 50mg Q.5D Take 50 mg M ethodi tartrate 8-[address] (LOPRESSOR) 00:00: (two) Hospi ta 50 mg 00 times a l tablet day with meals. atorvastati 2018-0 Yes 40mg QD Take 40 mg Methodi n (LIPITOR) 8-[address] 40 MG 00:00: daily. Hospita tablet 00 l tamsulosin 2018-0 Yes .4mg QD Take 0.4 Met hodi (FLOMAX) 8-[address] 0.4 mg 00:00: mouth Hospita capsule 00 daily. l furosemide Yes 40mg QD Take 40 mg M ethodi (LASIX) 40 7-[address] mg tablet 00:00: daily. Hospit a 00 l Procedures Procedure Date / Time Performing Clinician Source Performed [id number] 2021-05-31 00:00:00 [facility] [id number] 2021-05-31 00:00:00 [facility] CBC WITH PLATELET AND 2020-10-12 13:27:00 [facility] DIFFERENTIAL COMPREHENSIVE METABOLIC 2020-10-12 13:27:00 [facility] PANEL SEDIMENTATION RATE 2020-10-12 13:27:00 [facility] C-REACTIVE PROTEIN 2020-10-12 13:27:00 [facility] CBC WITH PLATELET AND 2020-06-24 14:07:00 [facility] DIFFERENTIAL COMPREHENSIVE METABOLIC 2020-06-24 14:07:00 [facility] PANEL SEDIMENTATION RATE 2020-06-24 14:07:00 [facility] C-REACTIVE PROTEIN 2020-06-24 14:07:[facility] 2020-06-24 14:07:00 Jigar Mario Abdul [facility] ANTIGEN HEPATITIS B CORE 2020-06-24 14:07:00 Mario Kimball [facility] TOTAL HEPATITIS C ANTIBODY 2020-06-24 14:07:[address] [facility] QUANTIFERON-TB GOLD 2020-06-24 14:07:00 [facility] Plan of Care Planned Activity Planned Date Details Comments Source Future Scheduled Test DIABETES: RETINAL EYE [facility] EXAM [code = DIABETES: RETINAL EYE EXAM] Future Scheduled Test DIABETIC FOOT EXAM [facility] [code = DIABETIC FOOT EXAM] Future Scheduled Test URINE MICROALBUMIN [facility] [code = URINE MICROALBUMIN] Future Scheduled Test COVID-19 VACCINE (1) [facility] [code = COVID-19 VACCINE (1)] Future Scheduled Test COLONOSCOPY SCREENING [facility] [code = COLONOSCOPY SCREENING] Future Scheduled Test SHINGLES VACCINES (#1) [facility] [code = SHINGLES VACCINES (#1)] Future Scheduled Test INFLUENZA VACCINE [code [facility] = INFLUENZA VACCINE] Encounters Start End Encounter Admission Attending Care Care Encounter Source Date/Time Date/Time Type Type Clinicians Facility Department ID 2021-07-07 Inpatient Raslan, [facility] OUTD [id number] [facility] 10:30:00 Jasbir [id number] [facility] 2021-05-31 Inpatient Raslan, [facility] OUTD [id number] [facility] 10:00:00 Jasbir [id number] [facility] 2021-05-29 Inpatient Raslan, [facility] OUTD [id number] [facility] 15:30:00 Jasbir [id number] [facility] 2021-07-11 2021-07-11 Outpatient EL Raslan, [facility] OUTD [id number] [facility] 05:19:00 05:19:00 Jasbir [id number] [facility] 2021-05-31 2021-05-31 Inpatient EL Apolinar, [facility] CARD [id number] [facility] 05:24:00 19:26:00 Jasbir 00 [facility] 2020-10-03 2020-10-03 Documentat Phill, 1.2.840.1 [id number] Methodi 00:00:00 00:00:00 ion Isabel 97466.1.[address] 3.430.2.7 Hospit a .3.063311 l .8 2020-09-28 2020-09-28 Telephone Jigar, 1.2.840.1 [id number] 2099 [id number] Methodi 17:18:20 17:18:32 Consult Mario 64908.1.[address] Sanjeev 3.430.2.7 Hospit a .3.195305 l .8 2020-09-05 2020-09-05 Telephone [facility], 1.2.840.1 [id number] 2099 [id number] Methodi 00:00:00 00:00:00 Derick De Luna [address] 3.430.2.7 Hospit a .3.235286 l .8 2020-07-11 2020-07-11 Refill Phill, 1.2.840.1 [id number] Methodi 00:00:00 00:00:[address] 3.430.2.7 Hospit a .3.198537 l .8 2020-07-05 2020-07-05 Refill Phill, 1.2.840.1 [id number] Methodi 00:00:00 00:00:[address] 3.430.2.7 Hospit a .3.333534 l .8 2020-06-29 2020-06-29 Telephone Jigar, 1.2.840.1 [id number] 2099 [id number] Methodi 15:23:49 15:24:01 Consult Mario [address]39.1.[address] Sanjeev 3.430.2.7 Hospit a .3.011879 l .8 2020-06-29 2020-06-29 Refill Phill, 1.2.840.1 [id number] Methodi 00:00:00 00:00:[address] 3.430.2.7 Hospit a .3.876193 l .8 2020-06-01 2020-06-01 Transcribe Jigar, 1.2.840.1 [id number] [id number] Methodi 00:00:00 00:00:00 Orders Mario [address]8260.1.[address] Sanjeev 3.430.2.7 Hospit a .3.830803 l .8 2020-06-01 2020-06-01 Orders Jigar, 1.2.840.1 [id number] Methodi 00:00:00 00:00:00 Only Mario [address]885.1.[address] Sanjeev 3.430.2.7 Hospit a .3.307943 l .8 2020-06-01 2020-06-01 Telephone Phill, 1.2.840.1 [id number] Methodi 00:00:00 00:00:[address] 3.430.2.7 Hospit a .3.777710 l .8 Results Test Description Test Time Test Comments Results Result Comments Source Novel Coronavirus 2019 Inhouse 2021-07-08 02:10:00 Test Item Value Reference Range Interpretation Comme nts Novel Coronavirus 2018 Negative Negative Posit katina results are indicative of the Inhouse (test code = presenc e [id number]-[id number]-3 RNA, clinical COVNONPUI) correlation wit h patient historyand other diagnosti c information is necessary to de terminepatient infection status. Positiv e results do not rule outbacterial in fection or co-infection with other viru ses. Negative results do not preclude SA RS-CoV-2 infection andshould not b e used as the sole basis for patient man agementdecisions. Negative result s must be combined with otherclinical o bservations, patient history, and ep idemiologicalinformation. Detection of SA RS-CoV-2 RNA may be affected bysamp le collection methods, storage conditi ons, and/or stageof infection. Allegra l RNA mutations, vaccinations, a ntiviraltherapeutics, antibiotics, ch emotherapeutic orimmunosuppres renzo drugs have not been evaluated for e ffectson detection. Results are for the identification of SARS-CoV-2 RNA usingthe [employer] M2000 System under th e FDA Emergency UseAuthorizatio n. The testing is performed by gus ramirezrained in the procedures for the Agosto M2000 moleculardiagno stic SARS-CoV-2 assay in vitro. BASIC METABOLIC [id number] 12:04:00 Test Item Value Reference Range Interpretation Comments SODIUM (test code = NA) 136 mEq/L 134-147 N POTASSIUM (test code = 5.2 mEq/L 3.4-5.0 H K) CHLORIDE (test code = 102 mEq/L 100-108 N CL) CARBON DIOXIDE (test 29 mEq/l 21-33 N code = CO2) ANION GAP (test code = 10 0-20 N GAP) GLUCOSE (test code = 326 mg/dL 70-110 H GLU) BLOOD UREA NITROGEN 19 mg/dL 7-18 H (test code = BUN) GLOMERULAR FILTRATION 50.9 80-90 L Units of measure = RATE (test code = GFR) ml/mi n/1.73 m2 CREATININE (test code = 1.4 mg/dL 0.6-1.3 H CREAT) CALCIUM (test code = 9.3 mg/dL 8.0-10.5 N CA) PROTHROMBIN [id number] 11:43:00 Test Item Value Reference Range Interpretation Comments PROTHROMBIN TIME 20.4 SECONDS 9.3-12.9 H PATIENT (test code = PTP) INTERNATIONAL NORMAL 1.8 0.8-1.2 H TARGET RATIO (test code = INR BY IN DICATION INR) Indication INR1. Prophyl axis of venous thrombos is 2.0 - 3. 0 (orthopedic chinmay tejas), Prophylaxis of venous thrombos is (other than hig h-risk surgery), Magali tment of Deep Vein Thrombosis/Pulm onary Embolism, Preve ntion of systemic emb olism - Tissue heart va lves, Acute Myocardia l Infarction (to prevent systemic embo lism), Valvular heart disease, Atri al Fibrillation, Bileaflet mecha nical valve in aortic position.2. Mec hanical prosthetic valv es (high risk), 2.5 - 3.5 Presence of Lupus Anticoagu lant or Antiphospholi pid Antibodies, Pre vention of systemic e mbolism - Acute Myocard ial Infarction (t o prevent recurre nt infarct). CBC W/AUTO [id number] 11:35:00 Test Item Value Reference Range Interpretation Comments WHITE BLOOD CELL (test code = 6.7 x10 3/uL 4.5-11.0 N WBC) RED BLOOD CELL (test code = 4.03 x10 6/uL 4.00-5.60 N RBC) HEMOGLOBIN (test code = HGB) 12.5 g/dL 12.5-16.9 N HEMATOCRIT (test code = HCT) 39.8 % 37.5-50.7 N MEAN CELL VOLUME (test code = 98.8 fL 81.0-99.0 N MCV) MEAN CELL HGB (test code = MCH) 31.0 pg 27.0-33.0 N MEAN CELL HGB CONCETRATION 31.4 g/dL 33.0-37.0 L (test code = MCHC) RED CELL DISTRIBUTION WIDTH CV 14.4 % 11.5-14.5 N (test code = RDW) RED CELL DISTRIBUTION WIDTH SD 52.3 fL 37.0-54.0 N (test code = RDW-SD) PLATELET COUNT (test code = 211 x10 3/uL 150-400 N PLT) MEAN PLATELET VOLUME (test code 10.9 fL 7.0-9.0 H = MPV) NEUTROPHIL % (test code = NT%) 62.6 % 56.0-77.0 N IMMATURE GRANULOCYTE % (test 0.9 % 0.0-2.0 N code = IG%) LYMPHOCYTE % (test code = LY%) 24.3 % 14.0-32.0 N MONOCYTE % (test code = MO%) 7.4 % 4.8-9.0 N EOSINOPHIL % (test code = EO%) 4.2 % 0.3-3.7 H BASOPHIL % (test code = BA%) 0.6 % 0.0-2.0 N NUCLEATED RBC % (test code = 0.0 % 0-0 N NRBC%) NEUTROPHIL # (test code = NT#) 4.17 x10 3/uL 2.0-7.6 N IMMATURE GRANULOCYTE # (test 0.06 x10 3/uL 0.00-0.03 H code = IG#) LYMPHOCYTE # (test code = LY#) 1.62 x10 3/uL 1.0-3.8 N MONOCYTE # (test code = MO#) 0.49 x10 3/uL 0.1-0.8 N EOSINOPHIL # (test code = EO#) 0.28 x10 3/uL 0.0-0.2 H BASOPHIL # (test code = BA#) 0.04 x10 3/uL 0.0-0.2 N NUCLEATED RBC # (test code = 0.00 x10 3/uL 0.0-0.1 N NRBC#) MANUAL DIFF REQUIRED (test code NO = MDIFF) GLUCOSE [id number] 13:34:00 Test Item Value Reference Range Interpretation Comments GLUCOSE BEDSIDE (test 177 MG/DL 70-110 H Perfor med by certified code = GLUBED) blow mold machine operator at [facility] [id number] 12:49:00 Test Item Value Reference Range Interpretation Comments ACT-ISTAT (test code 373 SEC 74-137 H Perform ed by certified = ACTI) blow mold machine operator at [facility] - XR CHEST 1 [id number] 00:00:00 Name: ANANTH REICH : 1955 Sex: M FAX: Spencer Griffin MD [place]: St: ADM FAX: Jasbir Yates MD [phone] FAX: Broderick HuitronP [phone] Name: ANANTH REICH [facility] [place] : 1955 Age/S: 65/M [address] [place] [address] Unit #: [id number] Loc: [place] [address] Phys: Broderick Huitron Acct: [id number] Dis Date: Status: ADM IN PHONE #: [phone] Exam Date: 05/31/2021 1634 FAX #: [phone] Reason: WATCHMAN EXAMS: CPT CODE: [id number] XR CHEST 1 V 24348 PROCEDURE INFORMATION: Exam: XR Chest Exam date and time: 05/31/2021 3:00 PM Age: 65 years old Clinical indication: Device placement; Other: Watchman TECHNIQUE: Imaging protocol: XR of the chest. Views: 1 view. COMPARISON: DX XR CHEST 2 V 05/29/2021 12:07 PM FINDINGS: Lungs: Bilateral mid lower lung predominately linear opacities are present. Pleural spaces: Costophrenic angles are sharp. Heart/Mediastinum: Cardiomediastinal silhouette is within normal limits for size. Bones/joints: Sternotomy wire seen. Soft tissues: Faint radiopaque densities over the left hilum may be present but difficult to appreciate due to portable technique and patient body habitus. IMPRESSION: 1. Faint radiopaque densities overleft hilar region likely correlate with the watchman device. This can be better visualized with upright PA and lateral departmental radiographs when the patient's condition allows. 2. Mild bilateral mid lower lung atelectasis/infiltrates. at 1659 Reported and signed by: Zen Tinajero M.D. CC: Spencer Rubin MD; Jasbir Jiang MD; Broderick Huitron Technologist: RT Nara(R) Trnscrd Date/Time/By: 05/31/2021 (1658) : By: [email or web address] Orig Print D/T: S: 05/31/2021 (1978) PAGE 1 Signed ReportNovel Coronavirus 2019 [id number] 05:48:00 Test Item Value Reference Range Interpretation Comments Novel Coronavirus Negative Negative Positive r esults are 2019 Inhouse (test indicativ e of the presence code = COVNONPUI) ofSARS-CoV -2 RNA, clinical correlation wit h patient historyand othe r diagnostic info rmation is necessary to determinepatien t infection status. Positiv e results do not rule out bacterial infection or co -infection with other viru ses. Negative result s do not preclude SARS-C oV-2 infection andsh ould not be used as the gustavo e basis for patient managementdecis ions. Negative result s must be combined with otherclinical observations, p atient history, and epidemiological information . Detection of SARS-CoV-2 RNA may be affe cted bysample collec tion methods, storag e conditions, and /or stageof infection. Allegra l RNA mutations, vacc inations, antiviraltherap eutics, antibiotics, chemotherapeuti c orimmunosuppres renzo drugs have not been e valuated for effectson d etection. Results are for the identification of SARS-CoV-2 RNA usingthe [employer] M2000 Sy stem under the FDA Emergen cy UseAuthorizatio n. The testing is perf ormed by personneltraine d in the procedures for the [employer] M2000 molecular diagnostic SARS-CoV-2 assa y in vitro. PROTHROMBIN [id number] 12:23:00 Test Item Value Reference Range Interpretation Comments PROTHROMBIN TIME 20.2 SECONDS 9.3-12.9 H PATIENT (test code = PTP) INTERNATIONAL NORMAL 1.8 0.8-1.2 H TARGET RATIO (test code = INR BY IN DICATION INR) Indication INR1. Prophyl axis of venous thrombos is 2.0 - 3. 0 (orthopedic chinmay tejas), Prophylaxis of venous thrombos is (other than hig h-risk surgery), Magali tment of Deep Vein Thrombosis/Pulm onary Embolism, Preve ntion of systemic emb olism - Tissue heart va lves, Acute Myocardia l Infarction (to prevent systemic embo lism), Valvular heart disease, Atri al Fibrillation, Bileaflet mecha nical valve in aortic position.2. Mec hanical prosthetic valv es (high risk), 2.5 - 3.5 Presence of Lupus Anticoagu lant or Antiphospholi pid Antibodies, Pre vention of systemic e mbolism - Acute Myocard ial Infarction (t o prevent recurre nt infarct). BASIC METABOLIC [id number] 12:17:00 Test Item Value Reference Range Interpretation Comments SODIUM (test code = NA) 137 mEq/L 134-147 N POTASSIUM (test code = 5.2 mEq/L 3.4-5.0 H K) CHLORIDE (test code = 104 mEq/L 100-108 N CL) CARBON DIOXIDE (test 28 mEq/l 21-33 N code = CO2) ANION GAP (test code = 10 0-20 N GAP) GLUCOSE (test code = 171 mg/dL 70-110 H GLU) BLOOD UREA NITROGEN 25 mg/dL 7-18 H (test code = BUN) GLOMERULAR FILTRATION 51.0 80-90 L Units of measure = RATE (test code = GFR) ml/mi n/1.73 m2 CREATININE (test code = 1.4 mg/dL 0.6-1.3 H CREAT) CALCIUM (test code = 9.4 mg/dL 8.0-10.5 N CA) [id number] 12:17:00 Test Item Value Reference Range Interpretation Comments PREALBUMIN (test code = PREALB) 22.0 mg/dL 16.0-40.0 N CBC W/AUTO [id number] 12:07:00 Test Item Value Reference Range Interpretation Comments WHITE BLOOD CELL (test code = 6.4 x10 3/uL 4.5-11.0 N WBC) RED BLOOD CELL (test code = 4.19 x10 6/uL 4.00-5.60 N RBC) HEMOGLOBIN (test code = HGB) 12.8 g/dL 12.5-16.9 N HEMATOCRIT (test code = HCT) 39.9 % 37.5-50.7 N MEAN CELL VOLUME (test code = 95.2 fL 81.0-99.0 N MCV) MEAN CELL HGB (test code = MCH) 30.5 pg 27.0-33.0 N MEAN CELL HGB CONCETRATION 32.1 g/dL 33.0-37.0 L (test code = MCHC) RED CELL DISTRIBUTION WIDTH CV 14.0 % 11.5-14.5 N (test code = RDW) RED CELL DISTRIBUTION WIDTH SD 48.7 fL 37.0-54.0 N (test code = RDW-SD) PLATELET COUNT (test code = 208 x10 3/uL 150-400 N PLT) MEAN PLATELET VOLUME (test code 10.5 fL 7.0-9.0 H = MPV) NEUTROPHIL % (test code = NT%) 50.9 % 56.0-77.0 L IMMATURE GRANULOCYTE % (test 0.9 % 0.0-2.0 N code = IG%) LYMPHOCYTE % (test code = LY%) 33.7 % 14.0-32.0 H MONOCYTE % (test code = MO%) 9.2 % 4.8-9.0 H EOSINOPHIL % (test code = EO%) 4.5 % 0.3-3.7 H BASOPHIL % (test code = BA%) 0.8 % 0.0-2.0 N NUCLEATED RBC % (test code = 0.0 % 0-0 N NRBC%) NEUTROPHIL # (test code = NT#) 3.24 x10 3/uL 2.0-7.6 N IMMATURE GRANULOCYTE # (test 0.06 x10 3/uL 0.00-0.03 H code = IG#) LYMPHOCYTE # (test code = LY#) 2.15 x10 3/uL 1.0-3.8 N MONOCYTE # (test code = MO#) 0.59 x10 3/uL 0.1-0.8 N EOSINOPHIL # (test code = EO#) 0.29 x10 3/uL 0.0-0.2 H BASOPHIL # (test code = BA#) 0.05 x10 3/uL 0.0-0.2 N NUCLEATED RBC # (test code = 0.00 x10 3/uL 0.0-0.1 N NRBC#) MANUAL DIFF REQUIRED (test code NO = MDIFF) - XR CHEST 2 [id number] 00:00:00 [facility] : 1955 Sex: M FAX: Spencer Griffin MD [place]: St: PRE FAX: Jasbir Yates MD [phone] Name: ANANTH REICH [facility] : 1955 Age/S: 65/M [address] [place] [address] Unit #: [id number] Loc: [place] [address] Phys: Jasbir iJang MD Acct: [id number] Dis Date: Status: PRE IN PHONE #: [phone] Exam Date: 05/29/2021 1239 FAX #: [phone] Reason: PREOP EXAMS: CPT CODE: [id number] XR CHEST 2 V [id number] PROCEDURE INFORMATION: Exam: XR Chest Exam date and time: 05/29/2021 12:07 PM Age: 65 years old Clinical indication: Pre-operative exam; Respiratory screening exam; Additional info: Preop TECHNIQUE: Imaging protocol: XR of the chest. Views: 2 views. PA and Lateral COMPARISON: No relevant prior studies available. FINDINGS:Lungs: Minimal central venous congestion is seen. Minimal atelectasis or scarring in the right lower lung. No consolidation. Pleural spaces: No pleural effusion. Heart/Mediastinum: Heart is borderline in size. Bones/joints: Prior sternotomy changes. IMPRESSION: Minimal central venous congestion is seen. at 9750 Reported and signed by: Sonam Harris D.O. CC: Spencer Rubin MD; Jasbir Jiang MD Technologist: RT Edwin(R) Trnscrd Date/Time/By: 05/29/2021 ([id number]) : By: [email or web address] Orig Print D/T: S: 05/29/2021 (7001) PAGE 1 Signed ReportComprehensive metabolic [id number] 23:37:00 Test Item Value Reference Interpretation Comments Range Glucose (test code 208 mg/dL 65-99 H Fasting = 2345-7) reference inter gilmar For someone wit hout known diabetes, a glucosevalue >1 25 mg/dL indicates that they may havediabetes an d this should be confirmed with afollow-up test . BUN (test code = 35 mg/dL 7-25 H 3094-0) Creatinine (test 1.38 mg/dL 0.70-1.25 H For patient s >49 code = 2160-0) years of age, the reference limit for Creatinine is approximately 1 3% higher for peopleidentifie d as -Chrystal n. EGFR Non-Afr. See_Comment L [Automated me ssage] [place] (test code The syst em which = 2775) generated this result transmit dayne reference range : > OR = 60 mL/min/1.73m2. The reference range was not used to interpret this result as normal/abnormal . EGFR See_Comment [Automated mes josie] Citizen [place] (test code The syst em which = 02703-5) generated this result transmit dayne reference range : > OR = 60 mL/min/1.73m2. The reference range was not used to interpret this result as normal/abnormal . BUN/creatinine See_Comment H [Automated m essage] ratio (test code = The syste m which 3097-3) generated this result transmit dayne reference range : 6 - 22 (calc). The reference range was not used to interpret this result as normal/abnormal . Sodium (test code = 135 mmol/L 947-673 5328-2) Potassium (test 5.2 mmol/L 3.5-5.3 code = 2823-3) Chloride (test code 99 mmol/L 98-110 = 2075-0) CO2 (test code = 28 mmol/L 20-32 2027-) Calcium (test code 9.3 mg/dL 8.6-10.3 = 10497-0) Protein (test code 7.1 g/dL 6.1-8.1 = 2885-2) Albumin, S (test 4.3 g/dL 3.6-5.1 code = 1751-7) Globulin, total See_Comment [Automated message] (test code = [place] h 13010-1) generated this result transmit dayne reference range : 1.9 - 3.7 g/dL (sara c). The reference r adonis was not used to interpret this result as normal/abnormal . Albumin/globulin See_Comment [Automated message] ratio (test code = The syste m which 1759-0) generated this result transmit dayne reference range : 1.0 - 2.5 (calc). T he reference range was not used to interpret this result as normal/abnormal . Total bilirubin 0.6 mg/dL 0.2-1.2 (test code = 1975-2) Alkaline 71 U/L 35-144 phosphatase (test code = 6768-6) AST (test code = 17 U/L 10-35 1920-8) ALT (test code = 17 U/L 9-46 1742-6) NOREEN (test code = FASTING:YESFASTIN NOREEN) G: YES RAC (test code = Performing RAC) Organization Information: Site ID: [facility] Address: [address] [place] [address] Director: Bryce Mcqueen Lab Interpretation Abnormal (test code = 86399-0) [facility]-reactive [id number] 23:37:00 Test Item Value Reference Range Interpretation Comments CRP (test code = 1.5 mg/L <8.0 1988-01) NOREEN (test code = FASTING:YESFASTING: YES NOREEN) RAC (test code = Performing Organization RAC) Information: Site ID: [facility] Address: [address] [place] [address] Director: Bryce Mcqueen [facility] with platelet and [id number] 23:37:00 Test Item Value Reference Range Interpretation Comments WBC (test code = See_Comment [Automated 9392-2) message] The system which generated this result transmitted reference range : 3.8 - 10.8 Thousand/uL. Th e reference range was not used to interpret this result as normal/abnormal . RBC (test code = See_Comment L [Automated 475-8) message] The system which generated this result transmitted reference range : 4.20 - 5.80 Million/uL. The reference range was not used to interpret this result as normal/abnormal . HGB (test code = 13.1 g/dL 13.2-17.1 L 718-7) HCT (test code = 40.1 % 38.5-50.0 4544-3) MCV (test code = 95.9 fL 80.0-100.0 787-2) MCH (test code = 31.3 pg 27.0-33.0 785-6) MCHC (test code = 32.7 g/dL 32.0-36.0 786-4) RDW (test code = 13.9 % 11.0-15.0 788-0) Platelet count (test See_Comment [Autom ated code = 777-3) message] The system which generated this result transmitted reference range : 140 - 400 Thousand/uL. Th e reference range was not used to interpret this result as normal/abnormal . MPV (test code = 10.6 fL 7.5-12.5 776-5) Neutrophils, See_Comment [Automated absolute (test code message] The = 751-8) system which generated this result transmitted reference range : 1,500 - 7,800 cells/uL. The reference range was not used to interpret this result as normal/abnormal . Lymphocytes, See_Comment [Automated absolute (test code message] The = 731-0) system which generated this result transmitted reference range : 850 - 3,900 cells/uL. The reference range was not used to interpret this result as normal/abnormal . Monocytes, absolute See_Comment [Automa dayne (test code = 842-7) message] The system which generated this result transmitted reference range : 200 - 950 cells/uL. The reference range was not used to interpret this result as normal/abnormal . Eosinophils, See_Comment [Automated absolute (test code message] The = 711-2) system which generated this result transmitted reference range : 15 - 500 cells/uL. The reference range was not used to interpret this result as normal/abnormal . Basophils, absolute See_Comment [Automa dayne (test code = 954-7) message] The system which generated this result transmitted reference range : 0 - 200 cells/u L. The reference range was not used to interpr et this result as normal/abnormal . Neutrophils (test 53.6 % code = 770-8) Lymphocytes (test 32.7 % code = 736-9) Monocytes (test code 9.0 % = 5905-5) Eosinophils (test 4.1 % code = 713-8) Basophils + RC (test 0.6 % code = 706-2) NOREEN (test code = FASTING:YESFASTING NOREEN) : YES RAC (test code = Performing RAC) Organization Information: Site ID: A Name: [facility] Lab Address: [address] [place] [address] Director: Bryce Mcqueen Lab Interpretation Abnormal (test code = 86126-5) [facility] [id number] 23:37:00 Test Item Value Reference Range Interpretation Comments Sedimentation rate 6 mm/h See_Comment [Automat ed (test code = 4537-7) message ] The system which generated this result transmitted reference range : < OR = 20. The reference range was not used to interpret this result as normal/abnormal . NOREEN (test code = FASTING:YESFASTING NOREEN) : YES RAC (test code = Performing RAC) Organization Information: Site ID: [facility] Address: [address] [place] [address] [facility] surface [id number] 23:12:00 Test Item Value Reference Range Interpretation Comments Hepatitis B surface NON-REACTIVE NON-REACTIVE Ag (test code = 5196-1) NOREEN (test code = NOREEN) FASTING:YESFASTING: YES RAC (test code = RAC) Performing Organization Information: [facility] ID: [facility] Address: [address] [place] [address] [facility] B core antibody [id number] 23:12:00 Test Item Value Reference Range Interpretation Comments Hepatitis B core total REACTIVE NON-REACTIVE A Ab (test code = 83281-3) NOREEN (test code = NOREEN) FASTING:YESFASTING: YES RAC (test code = RAC) Performing Organization Information: [facility] ID: [facility] Address: [address] [place] [address] Director: Bryce Mcqueen Lab Interpretation (test Abnormal code = 55930-9) [facility] [id number] 23:12:00 Test Item Value Reference Range Interpretation Comments Hepatitis C Ab NON-REACTIVE NON-REACTIVE (test code = 04744-4) Signal/cutoff <1.00 HCV antibody was (test code = non-reactive. 64178-4) There is no laboratory evidence of HCV infection. In m ost cases, no furth er action is required. However,if rece nt HCV exposure is suspected, a te st for HCV RNA(charlee t code 91896) is suggested. For additional information ple ase refer tohttp://educat ion .[employer]. [employer]/faq/TSJ53b8 (Th is link is tereza cantu provided for informational/e deny ational purpose s only.) NOREEN (test code = FASTING:YESFASTING: NOREEN) YES RAC (test code = Performing RAC) Organization Information: Site ID: [facility] Address: [address] [place] [phone] Director: Bryce Mcqueen [facility]anti[facility]ON-TB Gold Plus, 1 [id number] 23:12:00 Test Item Value Reference Interpretation Comments Range Quantiferon TB NEGATIVE NEGATIVE Negative test result. gold plus (test M. tuberculo sis code = 97957-1) complex infe ction unlikely. Quantiferon NIL IU/mL (test code = 54372-9) Quantiferon >10.00 IU/mL mitogen minus NIL (test code = 47495-5) Quantiferon plus IU/mL TB1 minus NIL (test code = 50543-6) Quantiferon plus IU/mL The Nil tu be value TB2 minus NIL reflects the (test code = background 5774) interferongamma immune response of the patient's blood sample.This gilmar ue has been subtracted from the patient'sdi splayed TB and Mitogen results. Lower than expected result s with the Mitogen tubeprevent false-negative Quantiferon baudilio dings bydetecting a p atient with a potentia l immunesuppressi ve condition and/o r suboptimal pre-analyticals pecimen handling. The T B1 Antigen tube is coated with theM. tuberculosis-sp ecific antigens design ed to elicitresponses from TB antigen prim ed CD4+ helperT-lymphoc ytes. The TB2 Antigen tube is coated with theM. tuberculosis-sp ecific antigens design ed to elicitresponses from TB antigen prim ed CD4+ helper and CD8+cytotoxic T-lymphocytes. For additional information, pl ease refer tohttps://educa radha.[employer]. [employer]/faq /RLX448(This li nk is being provided for informational/e ducatio nal purposes on ly.) NOREEN (test code = FASTING:YESFASTIN NOREEN) G: YES RAC (test code = Performing RAC) Organization Information: Site ID: [facility] Address: [address] [place] [phone] Director: Bryce Mcqueen [facility]
--- NOTE | 2021-09-14 09:40 | EDPHYS ---
Physician Documentation [facility] Name: Gucci Orozco Age: 66 yrs Sex: Male : 1955 Arrival Date: 09/14/2021 Time: 08:31 Bed 3 Private MD: ED Physician Tanika Deluca HPI: 09/14 09:18 This 66 yrs old Unknown Male presents to ER via EMS with complaints of CPR. ma2 09:18 Preceding the arrest, the patient collapsed. Pre-hospital course: The arrest was ma2 witnessed Bystanders at the scene performed CPR. EMS care prior to arrival: initiation of ACLS, ACLS details:. The patient has not experienced similar symptoms in the past. Historical: - Allergies: 09:02 No Known Allergies; iw - PMHx: 09:01 Myocardial infarction; Psoriatic Arthritis; iw - Social history:: Patient/guardian denies using alcohol, street drugs, The patient lives with family. - Family history:: not pertinent. ROS: 09:18 Constitutional: Negative for fever, chills, and weight loss. ma2 09:18 Unable to obtain ROS due to patient is on ventilator. ma2 Exam: 09:18 Skin: Warm, dry with normal turgor. Normal color with no rashes, no lesions, and no ma2 evidence of cellulitis. 09:18 Head/face: Patient unresponsive, pupils fixed nonreactive to light, equal bilaterally, no pulse, no movements, rhythm is asystole, no cardiac activity on ultrasound. Vital Signs: 08:41 Temp 96(R); Weight 138 kg (R); Height 6 ft. (182.88 cm); iw 08:41 Body Mass Index 41.26 (138.00 kg, 182.88 cm) iw Procedures: 09:18 CPR: See CPR flow sheet. Initial patient assessment: unresponsive, The presenting ma2 cardiac rhythm is V fib. respirations assisted with BVM, Compressions: began prior to arrival. Meds given: Epinephrine Amiodarone, despite ED evaluation and treatment, the patient . CPR was stopped at 08:41. Intubation: Ventilated with 100% NRB prior to procedure. Intubated orally using # 4 Manuel blade with 7.5 mm ETT. was successful on first attempt. Ventilated with ventilator. Cricoid pressure applied during procedure. Tube secured with tape with ETT argueta Placement verified by CO2 detector with (+) color change, Patient tolerated well. MDM: 08:46 Patient medically screened. ma2 09:18 Differential diagnosis: arrythmia, cardiac arrest, respiratory arrest. Data reviewed: ma2 vital signs, nurses notes. Counseling: I had a detailed discussion with the patient and/or guardian regarding: the historical points, exam findings, and any diagnostic results supporting the discharge/admit diagnosis, I informed daughter Mei about the . 09/14 08:44 Order name: Glucose, Ancillary Testing EDMS Administered Medications: 08:30 Drug: EPINEPHrine 0.1mg/mL 1:10,000 1 mg {Note: left tibia.} Route: IVP; Site: Other; iw 08:32 Follow up: Response: No adverse reaction; Blood pressure is unchanged iw 08:32 Drug: amiodarone 150 mg {Note: left tibia.} Route: IVP; Site: Other; iw 08:35 Follow up: Response: No adverse reaction; Cardiac rhythm is unchanged iw 08:33 Drug: EPINEPHrine 0.1mg/mL 1:10,000 1 mg Route: IVP; Site: left antecubital; iw 08:36 Follow up: Response: No adverse reaction; Cardiac rhythm is unchanged iw 08:36 Drug: EPINEPHrine 0.1mg/mL 1:10,000 1 mg Route: IVP; Site: left antecubital; iw 08:39 Follow up: Response: Cardiac rhythm is unchanged iw 08:40 Drug: EPINEPHrine 0.1mg/mL 1:10,000 1 mg Route: IVP; Site: left antecubital; iw 08:41 Follow up: Response: Cardiac rhythm is unchanged iw Point of Care Testing: Blood Glucose: 08:33 Blood Glucose: 386 mg/dL; iw Ranges: Critical Glucose Levels:Adult <50 mg/dl or >400 mg/dl <40 mg/dl or >180 mg/dl Disposition: 09:18 . ma2 09:38 Critical Care:. ma2 Disposition Summary: 09/14/21 09:42 Patient Location: Home(09/14/21 09:42) zeynep Pronouncing Physician: Tanika Deluca Time of : 08:41 09/14/2021 zeynep Diagnosis - Cardiac arrest, cause unspecified(09/14/21 09:42) ma2 Critical care time excluding procedures: 09:38 Critical care time: Bedside Care: 30 minutes, Family Intervention: 5 minutes. Total ma2 time: 35 minutes Signatures: Dispatcher [employer] Christel Green RN Tanika Jackson MD MD ma2 Corrections: (The following items were deleted from the chart) 09:20 09:18 All other systems are negative, ma2 ma2 : 09:39 Home ma2 ma2 : 09:39 Serious ma2 ma2 : 09:39 Cardiac arrest, cause unspecified ma2 ma2
--- NOTE | 2021-09-14 09:40 | ER ---
Nurse's Notes [facility] Name: Gucci Orozco Age: 66 yrs Sex: Male : 1955 Arrival Date: 09/14/2021 Time: 08:31 Bed 3 Private MD: Diagnosis: Cardiac arrest, cause unspecified Presentation: 09/14 08:27 Chief complaint: Chief complaint: EMS states: pt was working under a vehicle, went iw unresponsive, witnessed arrest, CPR initiated by bystanders, started approx 45 min LOOM WINDER TENDER, pt arrives to ED CPR in progress, PEA on monitor. Care prior to arrival: Assisted ventilation, Oral intubation, CPR via thumper performed by bystander was defibrillated and is still in progress Medication(s) given: Epi X 3 Glucose check: 242. Compressions began prior to arrival. 08:27 Method Of Arrival: EMS: [facility] iw 08:27 Acuity: ANALISA 1 iw Historical: - Allergies: 09:02 No Known Allergies; iw - PMHx: 09:01 Myocardial infarction; Psoriatic Arthritis; iw - Social history:: Patient/guardian denies using alcohol, street drugs, The patient lives with family. - Family history:: not pertinent. Assessment: 08:30 CPR assessment: unresponsive, intubated, Ambu ventilation. Cardiac rhythm is V fib. iw 08:33 CPR assessment: unresponsive, intubated, Ambu ventilation, pale. Cardiac rhythm is iw asystole. 08:35 CPR assessment: unresponsive, pupils fixed \T\ dilated, no respiratory effort, intubated, iw Ambu ventilation, pale. Cardiac rhythm is asystole. 08:37 CPR assessment: unresponsive, no respiratory effort, intubated, Ambu ventilation. iw Cardiac rhythm is PEA. 08:39 Cardiac rhythm is no cardiac movement via ultrasound, per Dr. Deluca. iw 08:41 CPR assessment: unresponsive, pupils fixed \T\ dilated, no respiratory effort. Cardiac iw rhythm is PEA. 10:05 Reassessment: Judge Floyd at bedside, released body to home, waiting for family iw to arrive to ER to dispo pt to home. 12:35 Reassessment: body released to [facility]. iw Vital Signs: 08:41 Temp 96(R); Weight 138 kg (R); Height 6 ft. (182.88 cm); iw 08:41 Body Mass Index 41.26 (138.00 kg, 182.88 cm) iw ED Course: 08:30 Defibrillated with 150 joules. iw 08:30 Patient has correct armband on for positive identification. iw 08:31 Patient arrived in ED. eb 08:33 Intubation: 7.5 Fr. ETT placed orally. Performed by Tanika Deluca MD Successful on iw first attempt. Placement verified by CO2 detector w/ + color change, auscultating bilateral breath sounds, Ventilated with Ambu bag. 08:33 Inserted saline lock: 20 gauge in left antecubital area, using aseptic technique. iw 08:40 Financial Report Service Sales Agent talked to both daughter and grandson of the patient/ family is in [place] and eb would like to be called with an update/ daughter Mei [phone]/ grandson Gucci [phone]/. 08:45 Police [place] [employer] called to page out the cemetery vault installer integration software engineer/ per Radha they will eb send out her bladder blower to us and they will notify the cemetery vault installer if needed. 08:46 Tanika Deluca MD is Attending Physician. ma2 09:00 Triage completed. iw 09:42 Tanika Deluca MD is Pronouncing Provider. ma2 12:34 Christel Arauz, RN is Primary Nurse. iw Administered Medications: 08:30 Drug: EPINEPHrine 0.1mg/mL 1:10,000 1 mg {Note: left tibia.} Route: IVP; Site: Other; iw 08:32 Follow up: Response: No adverse reaction; Blood pressure is unchanged iw 08:32 Drug: amiodarone 150 mg {Note: left tibia.} Route: IVP; Site: Other; iw 08:35 Follow up: Response: No adverse reaction; Cardiac rhythm is unchanged iw 08:33 Drug: EPINEPHrine 0.1mg/mL 1:10,000 1 mg Route: IVP; Site: left antecubital; iw 08:36 Follow up: Response: No adverse reaction; Cardiac rhythm is unchanged iw 08:36 Drug: EPINEPHrine 0.1mg/mL 1:10,000 1 mg Route: IVP; Site: left antecubital; iw 08:39 Follow up: Response: Cardiac rhythm is unchanged iw 08:40 Drug: EPINEPHrine 0.1mg/mL 1:10,000 1 mg Route: IVP; Site: left antecubital; iw 08:41 Follow up: Response: Cardiac rhythm is unchanged iw Point of Care Testing: Blood Glucose: 08:33 Blood Glucose: 386 mg/dL; iw Ranges: Outcome: 08:41 Outcome Patient iw 08:41 Patient : Time of 08:41 Pronounced by Tanika Deluca MD 08:41 Condition: 09:39 Discharge ordered by MD. adhikari 12:35 Patient : Body to home. iw 12:38 Patient left the ED. ld1 Signatures: Christel Arauz, RN RN iw Tanika Deluca MD MD ma2 Botello, Elizabeth eb Dibbern, Lauren RN RN ld1 Corrections: (The following items were deleted from the chart) 09:01 08:27 Chief complaint: EMS states: pt was working under a vehicle, went unresponsive, iw witness arrest, CPR initiated by bystanders, started approx 45 min LOOM WINDER TENDER, pt arrives to ED CPR in progress Chief complaint: EMS states: pt was working under a vehicle, went unresponsive, witness arrest, CPR initiated by bystanders, started approx 45 min LOOM WINDER TENDER, pt arrives to ED CPR in progress iw 09:04 08:30 Cardiac rhythm is V fib iw iw 09:18 08:41 Temp 96F Rectal; iw iw 09:19 08:27 Chief complaint: EMS states: pt was working under a vehicle, went unresponsive, iw witness arrest, CPR initiated by bystanders, started approx 45 min LOOM WINDER TENDER, pt arrives to ED CPR in progress, asystole on monitor Chief complaint: EMS states: pt was working under a vehicle, went unresponsive, witness arrest, CPR initiated by bystanders, started approx 45 min LOOM WINDER TENDER, pt arrives to ED CPR in progress, asystole on monitor iw 09:21 08:27 Chief complaint: EMS states: pt was working under a vehicle, went unresponsive, iw witnessed arrest, CPR initiated by bystanders, started approx 45 min LOOM WINDER TENDER, pt arrives to ED CPR in progress, asystole on monitor Chief complaint: EMS states: pt was working under a vehicle, went unresponsive, witnessed arrest, CPR initiated by bystanders, started approx 45 min LOOM WINDER TENDER, pt arrives to ED CPR in progress, asystole on monitor iw
[2021-09-14 12:43] VITALS: TEMP 96
== END 2021-09-14 12:38 | disposition expired ==
LOC: ER 08:28
PROC: 5A12012 Performance of Cardiac Output, Single, Manual (ICD-10-PCS; principal; 2021-09-14)
PROC: 0BH17EZ Insertion of Endotracheal Airway into Trachea, Via Natural or Artificial Opening (ICD-10-PCS; 2021-09-14)
DX: I46.9 Cardiac arrest, cause unspecified (principal); I25.2 Old myocardial infarction; L40.50 Arthropathic psoriasis, unspecified
CPT/HCPCS: 92960; 82947; 31500; 92950; 99285; J0282; J0171